=== PATIENT | female | born 1940 | race Caucasian/White ===

== ENCOUNTER 2022-10-13 16:33 | Inpatient (IN) ==
[2022-10-13] MEDS ORDERED: IOPAMIDOL 100 ML BOTTLE IV ONE (16:34)
[2022-10-13] MEDS ORDERED: IPRATROPIUM/ALBUTEROL 3 ML AMPUL.NEB NEB ONE (16:50)
[2022-10-13] MEDS ORDERED: methylPREDNISolone SOD SUCC 125 MG/2 ML VIAL IV ONE (16:50)
--- NOTE | 2022-10-13 16:56 | Emergency Department Note ---
SOB HPI General Chief Complaint: Shortness of Breath/Dyspnea Stated Complaint: SOB Time Seen by Provider: 10/13/22 16:43 Source: patient Mode of arrival: wheelchair Limitations: no limitations History of Present Illness HPI Narrative: Narrative: 82-year-old female presents the emergency department from minor care for shortness of breath. States that she does have some breathing problems she has inhalation problems she said she also has history of hypertension COPD emphysema and diabetes. They said that they did have some family over as it recently was her birthday and afterwards people called saying that they had cough and congestion worried that maybe she possibly got that. She is not on home oxygen at home does use Spiriva as well as an inhaler at home of the albuterol said she is been using it as prescribed she is only been using albuterol about 3-4 times per day over the last 2 days and the Spiriva once a day. They noticed that whenever she was getting up to move today she was becoming more short of breath. Denying any fevers or chills she does have a cough. Denying any other symptoms otherwise she says she feels weak and tired also does note that it rosenberg a little when she urinates since it has been some dark urine. It was noted that she had oxygen saturations down in the 74 is from ambulating and resting were 86 to 88% at [facility] care. Related Data Home Medications Medication Instructions Recorded Confirmed acetaminophen 500 mg tablet 500 mg PO QDAY PRN pain 07/15/15 09/23/22 Previous Rx's Medication Instructions Recorded cholecalciferol (vitamin D3) 50 2,000 unit PO QDAY Vit D def #90 04/27/18 mcg (2,000 unit) capsule caps lancets 28 gauge (Super Thin See Rx Instructions .Route 09/20/21 Lancets) .COMPLEX #100 ea lisinopril 40 mg tablet 40 mg PO QDAY blood pressure #90 10/29/21 tabs blood sugar diagnostic (Contour #100 ea 02/01/22 Test Strips) tiotropium 2.5 mcg-olodaterol 2.5 See Rx Instructions .Route 05/03/22 mcg/actuation mist for inhalation .COMPLEX #4 grams (Stiolto Respimat) alendronate 70 mg tablet 70 mg PO QWEEK #12 tabs 06/08/22 nystatin 100,000 unit/gram topical 1 applic topical QDAY #30 grams 07/07/22 powder metoprolol tartrate 50 mg tablet 50 mg PO BID #180 tabs 07/28/22 rosuvastatin 20 mg tablet 20 mg PO QDAY #90 tabs 07/28/22 albuterol sulfate 90 mcg/actuation 2 inh inhalation Q4H PRN shortness 09/22/22 aerosol inhaler (Ventolin HFA) of breath or wheezing #8.5 grams Allergies Allergy/AdvReac Type Severity Reaction Status Date / Time Sulfa (Sulfonamide AdvReac Intermediate made her Verified 10/13/22 16:32 Antibiotics) sick Chemical odors Allergy Unknown Cough Uncoded 10/13/22 16:32 Dust mites, cat dander Allergy Unknown Cough Uncoded 10/13/22 16:32 Grasses, trees Allergy Unknown Cough Uncoded 10/13/22 16:32 Review of Systems ROS ROS Narrative: Narrative: All systems ED: reviewed and negative except as stated. [facility] Narrative Patient History Narrative: Narrative: Medical/Surgical/Family History All Active Problems (Updated 10/13/22 @ 18:38 by Jordy Price DO) Hypertension, essential (Chronic) Hypercholesterolemia (Chronic) Pulmonary emphysema (Chronic) Osteoporosis (Chronic) Primary hyperparathyroidism (Chronic) Hearing Loss (Chronic) Cystocele with uterine prolapse (Chronic) Cholelithiasis and cholecystitis without obstruction (Acute) Lichen planus (Chronic) Thoracic back pain (Acute) Memory changes (Chronic) Medicare annual wellness visit, initial (Acute) Thyroid nodule (Chronic) Cystocele (Chronic) Intertrigo (Acute) Acute respiratory failure with hypoxemia (Acute) Pneumonia (Acute) Diabetes mellitus with neuropathy (Chronic) Medical History Cystocele Cystocele with uterine prolapse Diabetes mellitus with neuropathy Encounter for Health Maintenance Examination in Adult 10/26/17 Hearing Loss Hypercalcemia Hypercholesterolemia Hypertension, essential Intertrigo Medicare annual wellness visit, initial Memory changes 03/18: MMSE Osteoporosis Primary hyperparathyroidism Pulmonary emphysema Thoracic back pain Thyroid nodule Surgical History H/O tubal ligation 1972 H/O: hysterectomy 1987 History of hip replacement 03/11 History of laparoscopic cholecystectomy 12/15/2017 Family History Mother Malignant neoplasm of colon Father ETOH abuse Grandmother , Paternal Tuberculosis Brother ETOH abuse Pancreatic cancer Heart disease Sister Lung disease Social History Smoking Status: Former smoker Alcohol Intake Frequency: holiday/special occasion only Substance Use: does not use Exam Narrative Narrative: Narrative: Vital signs noted General: Awake. Alert. No distress. Skin: Warm. Dry. No rash. HEENT: NCAT. PERRL. EOMI. No conjunctivitis. No nystagmus. No pharyngitis. Membranes moist. Neck: No PTP. Good ROM. No meningeal signs. No stridor. No thyromegaly. No JVD. Cardiovascular: Mild tachycardia but regular rhythm. No murmur. No rubs. No gallops. Respiratory: Mild respiratory distress with audible wheezes but is wheezes heard mainly and expiratory mainly in the bases. Mild crackles heard as well bilaterally. And mildly diminished breath sounds throughout Gastrointestinal: Abdomen soft. No tenderness. No distention. Normal bowel sounds. No palpable organomegaly or masses. Back: No deformity. No CVAT. Musculoskeletal: No tenderness. No swelling. No erythema. No edema. Good peripheral pulses x 4 Lymphatic: No palpable adenopathy. Neurological: No focal neurological deficits observed. General Limitations: no limitations Course Vital Signs Vital signs: Vital Signs Temperature 99.0 F 10/13/22 16:34 Pulse Rate 102 H 10/13/22 16:34 Respiratory Rate 20 10/13/22 16:34 Blood Pressure 138/71 10/13/22 16:34 Pulse Oximetry (%) 88 L 10/13/22 16:34 Oxygen Delivery Method 10/13/22 16:34 Temperature 99.0 F 10/13/22 16:34 Pulse Rate 99 H 10/13/22 17:42 Respiratory Rate 20 10/13/22 16:34 Blood Pressure 155/81 10/13/22 17:42 Pulse Oximetry (%) 94 10/13/22 17:42 Oxygen Delivery Method 10/13/22 17:46 Oxygen Flow Rate (L/min) 2 10/13/22 17:46 [facility] MDM Narrative Medical decision making narrative: Narrative: Patient presents with shortness of breath. Does have history of COPD the worry here is this either COPD exacerbation versus a pneumonia. This could be virally induced. We will go ahead and get viral panels including a CBC and a chemistry, D-dimer to rule out pulmonary embolism as well as a chest x-ray. We will also get magnesium. Will also get blood cultures in case this is an early pneumonia we will hold off on antibiotics at this time she currently does not have a fever it is there is mild tachycardia. We will going give a DuoNeb as well as Solu- Medrol to help with these COPD. Disposition will be pending results. Patient is currently started on 2 L of oxygen to get her above 90% so she is oxygen requiring at this time. Patient's chest x-ray showed possible inflammation versus infection could be early pneumonia. CBC actually showed no white blood cell count. D-dimer was elevated to 2.02 so went ahead and ordered a CT angiogram which is still pending at this time to rule out pulmonary embolism. VBG actually looks fairly good as there is no acute findings lactate was negative at 1.0 sodium a little bit low at 132 creatinine 0.04 procalcitonin that was elevated to 0.25. This does make it possibly that this is a pneumonia so went ahead and started patient on azithromycin and Rocephin did get blood cultures. Did give patient Solu-Medrol as well as a DuoNeb to see if that does help with her breathing. Urine is still pending at this time. As well as a CT angiogram. Patient I think will need to be admitted because she is still hypoxic just walking her to the bathroom even on 2 L of oxygen she still dropped below 90% which is new for her she is normally is not requiring oxygen. Patient be signed out to the daytime physician pending CT angiogram as well as urinalysis and then speaking with hospitalist for possible admission. EKG interpretation: EKG done at 1734 interpreted by myself shows sinus rhythm rate of 98, parable 138, QRS 77, QTc 422. There is no acute ST changes no acute T wave changes no signs of ischemia. No signs of hypertrophy, heart strain, heart block. There is no WPW/Brugada/HOCM. Impression is normal sinus EKG with no ischemia Lab Data Result diagrams: 10/13/22 17:00 Labs: Lab Results 10/13/22 10/13/22 10/13/22 Range/Units 17:00 17:00 17:00 WBC 6.4 (4.5-11.0) K/mcL RBC 4.65 (3.59-5.38) M/mcL Hgb 13.9 (11.2-15.7) g/dL Hct 42.2 (34.1-44.9) % POC Hct (36-48) MCV 90.8 (80.0-100.0) fL MCH 29.9 (26.0-34.0) pg MCHC 32.9 (31.0-36.0) g/dL RDW 12.5 (11.5-14.5) % Plt Count 149 (140-440) K/mcL MPV 11.0 (8.8-12.5) fL Immature Gran % (Auto) 0.3 (0.0-0.5) % Neut % (Auto) 72.6 (38.0-78.0) % Lymph % (Auto) 9.5 L (15.5-49.0) % Ransom % (Auto) 16.6 H (1.0-12.0) % Eos % (Auto) 0.2 (0.0-7.0) % Baso % (Auto) 0.8 (0.0-2.0) % Lymph # (Auto) 0.61 L (1.50-4.80) K/mcL Ransom # (Auto) 1.06 H (0.10-0.90) K/mcL Eos # (Auto) 0.01 (0.00-0.70) K/mcL Baso # (Auto) 0.05 (0.00-0.30) K/mcL Immature Gran # 0.02 (0.00-0.05) K/mcl Absolute Neutrophils 4.65 (1.80-8.00) K/mcL D-Dimer 2.02 H (0.27-0.50) ug/mL POC VBG pH (7.32-7.42) POC VBG pCO2 at Temp (41-51) POC VBG pO2 (25-40) POC VBG HCO3 (24-28) POC VBG Total CO2 (25-29) POC Venous O2 Sat (40-70) POC VBG Base Excess (-2-2) VBG Lactic Acid (0.5-2) POC Sodium (133-145) POC Potassium (3.3-5.1) POC Chloride (96-108) POC Total CO2 (22-30) POC BUN (6-20) POC Creatinine (0.6-1.2) POC Glucose (70-105) POC WB Ioniz Calcium (1.16-1.32) Magnesium 2.1 (1.6-2.5) mg/dL Procalcitonin (<0.10) ng/mL 10/13/22 10/13/22 10/13/22 Range/Units 17:00 17:04 17:08 WBC (4.5-11.0) K/mcL RBC (3.59-5.38) M/mcL Hgb (11.2-15.7) g/dL Hct (34.1-44.9) % POC Hct 44.0 (36-48) MCV (80.0-100.0) fL MCH (26.0-34.0) pg MCHC (31.0-36.0) g/dL RDW (11.5-14.5) % Plt Count (140-440) K/mcL MPV (8.8-12.5) fL Immature Gran % (Auto) (0.0-0.5) % Neut % (Auto) (38.0-78.0) % Lymph % (Auto) (15.5-49.0) % Ransom % (Auto) (1.0-12.0) % Eos % (Auto) (0.0-7.0) % Baso % (Auto) (0.0-2.0) % Lymph # (Auto) (1.50-4.80) K/mcL Ransom # (Auto) (0.10-0.90) K/mcL Eos # (Auto) (0.00-0.70) K/mcL Baso # (Auto) (0.00-0.30) K/mcL Immature Gran # (0.00-0.05) K/mcl Absolute Neutrophils (1.80-8.00) K/mcL D-Dimer (0.27-0.50) ug/mL POC VBG pH 7.39 (7.32-7.42) POC VBG pCO2 at Temp 45.6 (41-51) POC VBG pO2 43 H (25-40) POC VBG HCO3 27.6 (24-28) POC VBG Total CO2 29.0 (25-29) POC Venous O2 Sat 78.0 H (40-70) POC VBG Base Excess 3.0 H (-2-2) VBG Lactic Acid 1.0 (0.5-2) POC Sodium 132 L (133-145) POC Potassium 4.3 (3.3-5.1) POC Chloride 98 (96-108) POC Total CO2 27.0 (22-30) POC BUN 18 (6-20) POC Creatinine 0.4 L (0.6-1.2) POC Glucose 204 H (70-105) POC WB Ioniz Calcium 1.32 (1.16-1.32) Magnesium (1.6-2.5) mg/dL Procalcitonin 0.25 H (<0.10) ng/mL ED POC Tests ED POC Tests: NAILA - Influenza A Negative NAILA - Influenza B Negative NAILA - SARS Antigen Negative Discharge Plan Patient/Caregiver Discharge Instructions Pt seen by SECRETARIAL TEACHER/PA only: No Clinical Impression: Acute respiratory failure with hypoxemia, Pneumonia Patient Disposition: Still a Patient Condition: Fair Follow up with: Livan Mendiola MD [Primary Care Provider] - Prescriptions: No Action cholecalciferol (vitamin D3) 2,000 unit capsule 2,000 unit PO QDAY Qty: 90 3RF lancets [Super Thin Lancets] 28 gauge misc See Rx Instructions .ROUTE .COMPLEX Qty: 100 6RF Dose Instruction: USE TO TEST BLOOD SUGAR EVERY DAY DIRECTED Rx Instructions: USE TO TEST BLOOD SUGAR EVERY DAY DIRECTED lisinopril 40 mg tablet 40 mg PO QDAY Qty: 90 4RF Rx Instructions: Dose change (DME) Contour Test Strips Strip See Dose Instructions .ROUTE .MEDSUPPLY Qty: 100 5RF Dose Instruction: As directed Rx Instructions: As directed, test once daily Stiolto Respimat 2.5-2.5 mcg/actuation mist See Rx Instructions .ROUTE .COMPLEX Qty: 4 3RF Dose Instruction: INHALE 2 PUFFS BY MOUTH EVERY 24 HOURS Rx Instructions: INHALE 2 PUFFS BY MOUTH EVERY 24 HOURS alendronate 70 mg tablet 70 mg PO QWEEK Qty: 12 1RF metoprolol tartrate 50 mg tablet 50 mg PO BID Qty: 180 1RF rosuvastatin 20 mg tablet 20 mg PO QDAY Qty: 90 1RF albuterol sulfate [Ventolin HFA] 90 mcg/actuation HFA aerosol inhaler 2 inh inhalation Q4H PRN (Reason: shortness of breath or wheezing) Qty: 8.5 1RF acetaminophen 500 mg tablet 500 mg PO QDAY PRN (Reason: pain) nystatin 100,000 unit/gram powder 1 applic topical QDAY Qty: 30 0RF Rx Instructions: Apply to area of tenderness, groin
[2022-10-13 17:13] LABS: POC Calcium, Ionized 1.32 (1.16-1.32); POC Creatinine 0.4 (0.6-1.2); POC Potassium 4.3 (3.3-5.1)
--- NOTE | 2022-10-13 17:35 | XRay Report ---
CLINICAL INFORMATION: Dyspnea COMPARISON: 04/11/2019 TECHNIQUE: Portable FINDINGS: The heart size, mediastinum and pulmonary vessels are unremarkable. Moderate mixed interstitial/alveolar airspace disease is seen throughout both lungs which is superimposed upon minor interstitial fibrosis. There are no effusions. The bones and soft tissues are within normal limits. IMPRESSION: Moderate interstitial/alveolar and airspace disease diffusely throughout both lungs. Consider infection or inflammatory processes. Interpreted and Authenticated by: Robert Kendrick 10/13/22
[2022-10-13 18:02] LABS: Basophils # (Auto) 0.05 K/mcL (0.00-0.30); Basophils % (Auto) 0.8 % (0.0-2.0); Eosinophils # (Auto) 0.01 K/mcL (0.00-0.70); Eosinophils % (Auto) 0.2 % (0.0-7.0); Hematocrit 42.2 % (34.1-44.9); Hemoglobin 13.9 g/dL (11.2-15.7); Lymphocytes # (Auto) 0.61 K/mcL (1.50-4.80); Lymphocytes % (Auto) 9.5 % (15.5-49.0); Mean Cell Volume 90.8 fL (80.0-100.0); Mean Corpuscular HGB Conc 32.9 g/dL (31.0-36.0); Monocytes # (Auto) 1.06 K/mcL (0.10-0.90); Monocytes % (Auto) 16.6 % (1.0-12.0); Neutrophils % (Auto) 72.6 % (38.0-78.0); Platelet Count 149 K/mcL (140-440); RBC 4.65 M/mcL (3.59-5.38); Red Cell Distribution Width 12.5 % (11.5-14.5); WBC 6.4 K/mcL (4.5-11.0)
--- NOTE | 2022-10-13 18:19 | EKG ---
[facility] Test Date: 2022-10-13 Pat Name: Hailey Gavin Department: ED Room: Gender: Female Day Care Supervisor: CS : [id number] Requested By: Jordy Price Order Number: [id number] Reading MD: Bandar Weber Measurements Intervals Gile Rate: 98 P: 6 MS: 138 QRS: 64 QRSD: 77 T: 73 QT: 330 QTc: 422 Interpretive Statements Sinus rhythm Borderline repolarization abnormality Electronically Signed On 10-13-2022 18:19:18 PST by Bandar Weber /store/[email or web address]/[id number]
[2022-10-13] MEDS ORDERED: cefTRIAXone 1 GM VIAL IV ONE (18:24)
[2022-10-13] MEDS ORDERED: AZITHROMYCIN 500 MG in DEXTROSE 5% IN WATER 250 ML IV ONE (18:24)
--- NOTE | 2022-10-13 21:07 | Emergency Department Note ---
Course Course Course Narrative: I assumed care of patient at 1900 pending CTA results and hospitalist review of case. Please refer to Dr. Price's note for care up to this point. CT of the chest was obtained and was negative for PE but did suggest infectious pulmonary process. Case was discussed with hospitalist who has agreed to admit the patient for respiratory failure secondary to pneumonia. Dr. Price is already treated patient with additional mycin and Rocephin. Plan of care was discussed with patient and she expressed verbal understanding and agreement. Vital Signs Vital signs: Vital Signs Temperature 99.0 F 10/13/22 16:34 Pulse Rate 102 H 10/13/22 16:34 Respiratory Rate 20 10/13/22 16:34 Blood Pressure 138/71 10/13/22 16:34 Pulse Oximetry (%) 88 L 10/13/22 16:34 Oxygen Delivery Method 10/13/22 16:34 Temperature 99.0 F 10/13/22 16:34 Pulse Rate 94 H 10/13/22 20:44 Respiratory Rate 32 H 10/13/22 20:44 Blood Pressure 145/80 10/13/22 19:31 Pulse Oximetry (%) 95 10/13/22 20:44 Oxygen Delivery Method 10/13/22 20:44 Oxygen Flow Rate (L/min) 2 10/13/22 20:44 MDM MDM Narrative Medical decision making narrative: Narrative: Differential Diagnosis Differential Diagnosis: Pneumonia, respiratory failure Medical Records Medical records reviewed: Yes I reviewed the patient's medical records. Lab Data Result diagrams: 10/13/22 17:00 Labs: Lab Results 10/13/22 10/13/22 10/13/22 Range/Units 17:00 17:00 17:00 WBC 6.4 (4.5-11.0) K/mcL RBC 4.65 (3.59-5.38) M/mcL Hgb 13.9 (11.2-15.7) g/dL Hct 42.2 (34.1-44.9) % POC Hct (36-48) MCV 90.8 (80.0-100.0) fL MCH 29.9 (26.0-34.0) pg MCHC 32.9 (31.0-36.0) g/dL RDW 12.5 (11.5-14.5) % Plt Count 149 (140-440) K/mcL MPV 11.0 (8.8-12.5) fL Immature Gran % (Auto) 0.3 (0.0-0.5) % Neut % (Auto) 72.6 (38.0-78.0) % Lymph % (Auto) 9.5 L (15.5-49.0) % Dewitt % (Auto) 16.6 H (1.0-12.0) % Eos % (Auto) 0.2 (0.0-7.0) % Baso % (Auto) 0.8 (0.0-2.0) % Lymph # (Auto) 0.61 L (1.50-4.80) K/mcL Dewitt # (Auto) 1.06 H (0.10-0.90) K/mcL Eos # (Auto) 0.01 (0.00-0.70) K/mcL Baso # (Auto) 0.05 (0.00-0.30) K/mcL Immature Gran # 0.02 (0.00-0.05) K/mcl Absolute Neutrophils 4.65 (1.80-8.00) K/mcL D-Dimer 2.02 H (0.27-0.50) ug/mL POC VBG pH (7.32-7.42) POC VBG pCO2 at Temp (41-51) POC VBG pO2 (25-40) POC VBG HCO3 (24-28) POC VBG Total CO2 (25-29) POC Venous O2 Sat (40-70) POC VBG Base Excess (-2-2) VBG Lactic Acid (0.5-2) POC Sodium (133-145) POC Potassium (3.3-5.1) POC Chloride (96-108) POC Total CO2 (22-30) POC BUN (6-20) POC Creatinine (0.6-1.2) POC Glucose (70-105) POC WB Ioniz Calcium (1.16-1.32) Magnesium 2.1 (1.6-2.5) mg/dL Procalcitonin (<0.10) ng/mL 10/13/22 10/13/22 10/13/22 Range/Units 17:00 17:04 17:08 WBC (4.5-11.0) K/mcL RBC (3.59-5.38) M/mcL Hgb (11.2-15.7) g/dL Hct (34.1-44.9) % POC Hct 44.0 (36-48) MCV (80.0-100.0) fL MCH (26.0-34.0) pg MCHC (31.0-36.0) g/dL RDW (11.5-14.5) % Plt Count (140-440) K/mcL MPV (8.8-12.5) fL Immature Gran % (Auto) (0.0-0.5) % Neut % (Auto) (38.0-78.0) % Lymph % (Auto) (15.5-49.0) % Dewitt % (Auto) (1.0-12.0) % Eos % (Auto) (0.0-7.0) % Baso % (Auto) (0.0-2.0) % Lymph # (Auto) (1.50-4.80) K/mcL Dewitt # (Auto) (0.10-0.90) K/mcL Eos # (Auto) (0.00-0.70) K/mcL Baso # (Auto) (0.00-0.30) K/mcL Immature Gran # (0.00-0.05) K/mcl Absolute Neutrophils (1.80-8.00) K/mcL D-Dimer (0.27-0.50) ug/mL POC VBG pH 7.39 (7.32-7.42) POC VBG pCO2 at Temp 45.6 (41-51) POC VBG pO2 43 H (25-40) POC VBG HCO3 27.6 (24-28) POC VBG Total CO2 29.0 (25-29) POC Venous O2 Sat 78.0 H (40-70) POC VBG Base Excess 3.0 H (-2-2) VBG Lactic Acid 1.0 (0.5-2) POC Sodium 132 L (133-145) POC Potassium 4.3 (3.3-5.1) POC Chloride 98 (96-108) POC Total CO2 27.0 (22-30) POC BUN 18 (6-20) POC Creatinine 0.4 L (0.6-1.2) POC Glucose 204 H (70-105) POC WB Ioniz Calcium 1.32 (1.16-1.32) Magnesium (1.6-2.5) mg/dL Procalcitonin 0.25 H (<0.10) ng/mL ED POC Tests ED POC Tests: NAILA - Influenza A Negative NAILA - Influenza B Negative NAILA - SARS Antigen Negative Radiology Data Radiology results reviewed: Yes I reviewed the patient's radiology results. Radiology results narrative: Chest x-ray obtained, agree with radiologist interpretation CT of the chest obtained with image reviewed myself with no acute PE Core Measures AMI Core Measures Followed: Yes Discharge Plan Patient/Caregiver Discharge Instructions Pt seen by BOOSTER STATION OPERATOR/PA only: No Clinical Impression: Acute respiratory failure with hypoxemia, Pneumonia Patient Disposition: Xfer As Outpt/Obs ([facility]) Condition: Fair Follow up with: Livan Mendiola MD [Primary Care Provider] - Prescriptions: No Action cholecalciferol (vitamin D3) 2,000 unit capsule 2,000 unit PO QDAY Qty: 90 3RF lancets [Super Thin Lancets] 28 gauge misc See Rx Instructions .ROUTE .COMPLEX Qty: 100 6RF Dose Instruction: USE TO TEST BLOOD SUGAR EVERY DAY DIRECTED Rx Instructions: USE TO TEST BLOOD SUGAR EVERY DAY DIRECTED lisinopril 40 mg tablet 40 mg PO QDAY Qty: 90 4RF Rx Instructions: Dose change (DME) Contour Test Strips Strip See Dose Instructions .ROUTE .MEDSUPPLY Qty: 100 5RF Dose Instruction: As directed Rx Instructions: As directed, test once daily Stiolto Respimat 2.5-2.5 mcg/actuation mist See Rx Instructions .ROUTE .COMPLEX Qty: 4 3RF Dose Instruction: INHALE 2 PUFFS BY MOUTH EVERY 24 HOURS Rx Instructions: INHALE 2 PUFFS BY MOUTH EVERY 24 HOURS alendronate 70 mg tablet 70 mg PO QWEEK Qty: 12 1RF metoprolol tartrate 50 mg tablet 50 mg PO BID Qty: 180 1RF rosuvastatin 20 mg tablet 20 mg PO QDAY Qty: 90 1RF albuterol sulfate [Ventolin HFA] 90 mcg/actuation HFA aerosol inhaler 2 inh inhalation Q4H PRN (Reason: shortness of breath or wheezing) Qty: 8.5 1RF acetaminophen 500 mg tablet 500 mg PO QDAY PRN (Reason: pain) nystatin 100,000 unit/gram powder 1 applic topical QDAY Qty: 30 0RF Rx Instructions: Apply to area of tenderness, groin
[2022-10-13 21:13] LABS: Appearance,Urine CLEAR (Clear); Bilirubin,Urine NEGATIVE (Negative); Color,Urine YELLOW; Culture Indicated,Urine No; Glucose,Urine (UA) NEGATIVE (Negative); Ketones,Urine 15 mg/dL (Negative); Leukocyte Esterase,Urine NEGATIVE /uL (Negative); Mucus,Urine FEW /hpf; Nitrate,Urine NEGATIVE (Negative); Protein,Urine 30 mg/dL (Negative); Specific Gravity,Urine 1.015 (1.000-1.035); Urine Blood MODERATE ery/mcL (Negative); Urine RBC 13 /hpf (0-3); Urine Squamous Epithelial Cell < 1 /hpf (0-4); Urine WBC 3 /hpf (0-4)
--- NOTE | 2022-10-13 22:15 | Internal Med History&Physical ---
HPI History of Present Illness Patient information: Note initiated : 10/13/22 at 10:09 pm Service Date, if different from initiated Date: [] Patient: Hailey Gavin 82 y/o F admitted on for Shortness of breath. Chief Complaint: [] History of present illness: Ms. Gavin is a 82-year-old female with a history of hypertension, hyperlipidemia, COPD, diabetes mellitus, osteoporosis who presented to the emergency department for shortness of breath that has been progressively worsening for about 4 days. Patient also has had a productive cough initially of yellowish sputum that later became more brownish in color. Patient has had some chills and fatigue but no fevers. In the emergency department, the patient had a new oxygen requirement of 2 L/min, a temperature of 99.0, respiratory rate in the 30s, heart rate in the 90s. The patient's white blood cell count was normal, sodium mildly decreased at 132, glucose level 204 with an otherwise unremarkable chemistry panel. Chest x-ray showed moderate interstitial alveolar and airspace disease diffusely throughout both lungs. The patient had an elevated D-dimer, CTA was performed and results pending when hospital medicine was consulted. The ED provider did say that the CTA preliminary report was negative for pulmonary embolism. Oanh COVID and influenza combo was negative. Review of systems Constitutional: Positive for chills and fatigue, no fevers Eyes: no vision changes or pain Cardiovascular: no chest pain, no palpitations Respiratory: Positive for shortness of breath, productive cough Gastrointestinal: no abdominal pain, no nausea, vomiting, or diarrhea Genitourinary: no dysuria or difficulty voiding Musculoskeletal: no arthralgia or myalgia Integumentary: no skin lesion or wound Neurological: no focal weakness or numbness Psychiatric: no anxiety or depression Physical exam Head: Atraumatic, normal inspection. Eyes: normal appearance, no scleral icterus. Neck: full ROM Respiratory: 2 L/min oxygen supplementation, diffuse of bilateral wheezes Cardiovascular: normal rate and rhythm, S1, S2. GI/Abdominal: soft, nontender, no guarding. Extremities: full range of motion, nontender. Neurological: CN II-XII intact, intact motor, intact sensation. Psychiatric: Appears mildly anxious. Skin: warm, normal color PFSH PFSH All Active Problems (Updated 10/13/22 @ 18:38 by Jordy Price DO) Hypertension, essential (Chronic) Hypercholesterolemia (Chronic) Pulmonary emphysema (Chronic) Osteoporosis (Chronic) Primary hyperparathyroidism (Chronic) Hearing Loss (Chronic) Cystocele with uterine prolapse (Chronic) Cholelithiasis and cholecystitis without obstruction (Acute) Lichen planus (Chronic) Thoracic back pain (Acute) Memory changes (Chronic) Medicare annual wellness visit, initial (Acute) Thyroid nodule (Chronic) Cystocele (Chronic) Intertrigo (Acute) Acute respiratory failure with hypoxemia (Acute) Pneumonia (Acute) Diabetes mellitus with neuropathy (Chronic) Medical History Cystocele Cystocele with uterine prolapse Diabetes mellitus with neuropathy Encounter for Health Maintenance Examination in Adult 10/26/17 Hearing Loss Hypercalcemia Hypercholesterolemia Hypertension, essential Intertrigo Medicare annual wellness visit, initial Memory changes 03/18: MMSE Osteoporosis Primary hyperparathyroidism Pulmonary emphysema Thoracic back pain Thyroid nodule Surgical History H/O tubal ligation 1972 H/O: hysterectomy 1987 History of hip replacement 03/11 History of laparoscopic cholecystectomy 12/15/2017 Family History Mother Malignant neoplasm of colon Father ETOH abuse Grandmother , Paternal Tuberculosis Brother ETOH abuse Pancreatic cancer Heart disease Sister Lung disease Social History marital status: other: Children-4 smoking status: Former smoker quit date: 07/14/15 pack-years: 55 alcohol intake frequency: holiday/special occasion only substance use type: does not use MEDS/ALLERGIES Home Medications and Allergies Home Medications Medication Instructions Recorded Confirmed Type acetaminophen 500 mg tablet 500 mg PO QDAY PRN pain 07/15/15 09/23/22 History cholecalciferol (vitamin D3) 50 2,000 unit PO QDAY Vit D def #90 04/27/18 Rx mcg (2,000 unit) capsule caps lancets 28 gauge (Super Thin See Rx Instructions .Route 09/20/21 09/23/22 Rx Lancets) .COMPLEX #100 ea lisinopril 40 mg tablet 40 mg PO QDAY blood pressure #90 10/29/21 09/23/22 Rx tabs blood sugar diagnostic (Contour #100 ea 02/01/22 09/23/22 Rx Test Strips) tiotropium 2.5 mcg-olodaterol 2.5 See Rx Instructions .Route 05/03/22 09/23/22 Rx mcg/actuation mist for inhalation .COMPLEX #4 grams (Stiolto Respimat) alendronate 70 mg tablet 70 mg PO QWEEK #12 tabs 06/08/22 09/23/22 Rx nystatin 100,000 unit/gram topical 1 applic topical QDAY #30 grams 07/07/22 09/23/22 Rx powder metoprolol tartrate 50 mg tablet 50 mg PO BID #180 tabs 07/28/22 09/23/22 Rx rosuvastatin 20 mg tablet 20 mg PO QDAY #90 tabs 07/28/22 09/23/22 Rx albuterol sulfate 90 mcg/actuation 2 inh inhalation Q4H PRN shortness 09/22/22 09/23/22 Rx aerosol inhaler (Ventolin HFA) of breath or wheezing #8.5 grams Allergies Allergy/AdvReac Type Severity Reaction Status Date / Time Sulfa (Sulfonamide AdvReac Intermediate made her Verified 10/13/22 16:32 Antibiotics) sick Chemical odors Allergy Unknown Cough Uncoded 10/13/22 16:32 Dust mites, cat dander Allergy Unknown Cough Uncoded 10/13/22 16:32 Grasses, trees Allergy Unknown Cough Uncoded 10/13/22 16:32 EXAM Constitutional Vitals: Temp Pulse Resp BP Pulse Ox O2 Del Method O2 Flow Rate 99.0 F 94 H 32 H 145/80 95 2 10/13/22 16:34 10/13/22 20:44 10/13/22 20:44 10/13/22 19:31 10/13/22 20:44 10/13/22 20:44 10/13/22 20:44 DATA Data Completed and Pending Labs: Labs from last 24 hours 10/13/22 10/13/22 10/13/22 20:30 17:08 17:04 WBC RBC Hgb Hct POC Hct 44.0 MCV MCH MCHC RDW Plt Count MPV Immature Gran % (Auto) Neut % (Auto) Lymph % (Auto) [place] % (Auto) Eos % (Auto) Baso % (Auto) Lymph # (Auto) [place] # (Auto) Eos # (Auto) Baso # (Auto) Immature Gran # Absolute Neutrophils D-Dimer POC VBG pH 7.39 POC VBG pCO2 at Temp 45.6 POC VBG pO2 43 H POC VBG HCO3 27.6 POC VBG Total CO2 29.0 POC Venous O2 Sat 78.0 H POC VBG Base Excess 3.0 H VBG Lactic Acid 1.0 POC Sodium 132 L POC Potassium 4.3 POC Chloride 98 POC Total CO2 27.0 POC BUN 18 POC Creatinine 0.4 L POC Glucose 204 H POC WB Ioniz Calcium 1.32 Magnesium Procalcitonin Urine Color Yellow Urine Appearance Clear Urine pH 6.0 Ur Specific [place] 1.015 Urine Protein 30 A Urine Glucose (UA) Negative Urine Ketones 15 A Urine Occult Blood Moderate A Urine Nitrate Negative Urine Bilirubin Negative Urine Urobilinogen 4.0 A Ur Leukocyte Esterase Negative Urine RBC 13 H Urine WBC 3 Ur Squamous Epith Cells < 1 Urine Bacteria None Urine Mucus Few A Ur Culture Indicated? No 10/13/22 10/13/22 10/13/22 17:00 17:00 17:00 WBC RBC Hgb Hct POC Hct MCV MCH MCHC RDW Plt Count MPV Immature Gran % (Auto) Neut % (Auto) Lymph % (Auto) [place] % (Auto) Eos % (Auto) Baso % (Auto) Lymph # (Auto) [place] # (Auto) Eos # (Auto) Baso # (Auto) Immature Gran # Absolute Neutrophils D-Dimer 2.02 H POC VBG pH POC VBG pCO2 at Temp POC VBG pO2 POC VBG HCO3 POC VBG Total CO2 POC Venous O2 Sat POC VBG Base Excess VBG Lactic Acid POC Sodium POC Potassium POC Chloride POC Total CO2 POC BUN POC Creatinine POC Glucose POC WB Ioniz Calcium Magnesium 2.1 Procalcitonin 0.25 H Urine Color Urine Appearance Urine pH Ur Specific [place] Urine Protein Urine Glucose (UA) Urine Ketones Urine Occult Blood Urine Nitrate Urine Bilirubin Urine Urobilinogen Ur Leukocyte Esterase Urine RBC Urine WBC Ur Squamous Epith Cells Urine Bacteria Urine Mucus Ur Culture Indicated? 10/13/22 17:00 WBC 6.4 RBC 4.65 Hgb 13.9 Hct 42.2 POC Hct MCV 90.8 MCH 29.9 MCHC 32.9 RDW 12.5 Plt Count 149 MPV 11.0 Immature Gran % (Auto) 0.3 Neut % (Auto) 72.6 Lymph % (Auto) 9.5 L [place] % (Auto) 16.6 H Eos % (Auto) 0.2 Baso % (Auto) 0.8 Lymph # (Auto) 0.61 L [place] # (Auto) 1.06 H Eos # (Auto) 0.01 Baso # (Auto) 0.05 Immature Gran # 0.02 Absolute Neutrophils 4.65 D-Dimer POC VBG pH POC VBG pCO2 at Temp POC VBG pO2 POC VBG HCO3 POC VBG Total CO2 POC Venous O2 Sat POC VBG Base Excess VBG Lactic Acid POC Sodium POC Potassium POC Chloride POC Total CO2 POC BUN POC Creatinine POC Glucose POC WB Ioniz Calcium Magnesium Procalcitonin Urine Color Urine Appearance Urine pH Ur Specific [place] Urine Protein Urine Glucose (UA) Urine Ketones Urine Occult Blood Urine Nitrate Urine Bilirubin Urine Urobilinogen Ur Leukocyte Esterase Urine RBC Urine WBC Ur Squamous Epith Cells Urine Bacteria Urine Mucus Ur Culture Indicated? A/P Narrative A/P Narrative: Assessment: 82-year-old female with a history of hypertension, hyperlipidemia, COPD, diabetes mellitus, osteoporosis admitted for acute hypoxic respiratory failure and a COPD exacerbation secondary to pneumonia. #Acute hypoxic respiratory failure #Community acquired pneumonia #Severe COPD exacerbation #Generalized weakness #Essential hypertension #Hyperlipidemia #Osteoporosis Plan -Ceftriaxone and azithromycin IV. -Oxygen supplementation as needed. -Solu-Medrol IV twice daily. -Scheduled DuoNebs and as needed albuterol nebs. -Sputum gram stain and culture. -MRSA nasal PCR. -Respiratory virus panel. -[place] PCR. -Follow blood cultures. -Follow CTA chest report. -Humalog SSImedium dose. -Home medication reconciliation. -Consistent carbohydrate diet. -PT and OT consult. -DVT prophylaxis: Lovenox Time Spent With Patient Time: Total time spent is greater than 50% in coordination of care (as documented) at patient's floor/unit and/or counseling patient:
[2022-10-14] MEDS ORDERED: DEXTROSE 31 GM ORAL.SUSP PO PRN (01:35)
[2022-10-14] MEDS ORDERED: DEXTROSE 50% 50 ML VIAL IV PRN (01:35)
[2022-10-14] MEDS ORDERED: LACTULOSE 20 GM/30 ML ORAL.SOL PO PRN (01:35)
[2022-10-14] MEDS ORDERED: ACETAMINOPHEN 325 MG TABLET PO PRN (01:35)
[2022-10-14] MEDS ORDERED: ALBUTEROL SULFATE 2.5 MG/3 ML NEBULIZER NEB PRN (01:35)
[2022-10-14] MEDS ORDERED: ONDANSETRON 4 MG/2 ML VIAL IV PRN (01:35)
--- NOTE | 2022-10-14 02:43 | Cat Scan Report ---
CLINICAL INFORMATION: Elevated d-dimer and hypoxia COMPARISON: None. TECHNIQUE: 80ml of Isovue-370 were injected intravenously. Using SmartPrep to maximize pulmonary artery opacification, .625mm helical slices were obtained from the lung apices through the lung bases. Following reconstruction, 2.5 mm sagittal, coronal, and axial reformations were processed. The exam was reviewed at mediastinal, lung, and bone windows. The exam was performed using radiation dose optimization techniques including, but not limited to, automated exposure control, adjustment of the mA and/or kV according to patient size and use of iterative reconstruction technique. FINDINGS: Pulmonary parenchymal windows show moderate centrilobular emphysema featuring chronic bronchitis with elevated lung volumes wall thickening/dilatation of bronchi. There are also multiple bullae-predominantly within the upper lobes. Small patchy, predominantly tree-in-bud, infiltrates, are scattered throughout the periphery of both upper, lower and right middle lobes. This is most prominent in the posterior segment of the right upper lobe where it is moderate in size. Consider infection or aspiration... Pleural spaces are unremarkable-no effusions. Mediastinal windows show the heart is grossly normal in size and configuration. Small loculated pericardial effusion is seen anteriorly. The central pulmonary arteries are enlarged right pulmonary 3 cm and the left pulmonary artery is also a 3 cm this suggests pulmonary hypertension. There are no emboli. The thoracic aorta is also normal diameter and well-opacified. Few mildly enlarged lymph nodes noted in the lower mediastinum ranging up to 11 mm in the azygos region. This should represent benign reactive adenopathy. Esophagus is grossly normal. The thyroid is unremarkable. Bone windows show mild T6 compression fracture of uncertain chronicity. No other osseous abnormalities. Soft tissues of the chest wall are normal. Images should the upper abdomen show bilateral adrenal masses: 3.4 cm on the left and 3.2 cm on the right. These almost certainly represent benign adenomas. IMPRESSION: 1. No evidence of pulmonary embolus. 2. Moderate centrilobular emphysema. Central pulmonary artery enlargement is compatible with pulmonary hypertension related to emphysema. 3. Moderate patchy infiltrate in the posterior segment of the right upper lobe Small patchy tree-in-bud infiltrates are scattered throughout the remaining right upper, left upper lobe, both lower lobes and right middle lobe. Consider infection or aspiration. 4. Small loculated pericardial effusion anteriorly. 5. Bilateral adrenal adenomas Interpreted and Authenticated by: Robert Kendrick 10/14/22
[2022-10-14] MEDS: methylPREDNISolone SOD SUCC 125 MG/2 ML VIAL IV SCH ×3 (02:55→20:42)
[2022-10-14] MEDS: IPRATROPIUM/ALBUTEROL 3 ML AMPUL.NEB NEB SCH ×7 (02:59→22:41)
[2022-10-14] MEDS ORDERED: IPRATROPIUM/ALBUTEROL 3 ML AMPUL.NEB NEB ONE (03:11)
[2022-10-14] MEDS: 0.9 % SODIUM CHLORIDE 10 ML SYRINGE IV SCH ×3 (05:57→20:50)
[2022-10-14 06:58] LABS: Hematocrit 42.4 % (34.1-44.9); Hemoglobin 13.6 g/dL (11.2-15.7); Mean Cell Volume 91.8 fL (80.0-100.0); Mean Corpuscular HGB Conc 32.1 g/dL (31.0-36.0); Mean Platelet Volume 10.4 fL (8.8-12.5); Platelet Count 154 K/mcL (140-440); RBC 4.62 M/mcL (3.59-5.38); Red Cell Distribution Width 12.5 % (11.5-14.5); WBC 5.7 K/mcL (4.5-11.0)
[2022-10-14 07:17] LABS: ALT/SGPT 107 U/L (<40); AST/SGOT 75 U/L (<32); Albumin 3.3 gm/dL (3.2-5.2); Albumin/Globulin Ratio 1.1 (1.0-2.3); Alkaline Phosphatase 79 U/L (39-117); Bilirubin,Direct 0.3 mg/dL (<0.3); Bilirubin,Total 0.7 mg/dL (0.1-1.0); Blood Urea Nitrogen 14 mg/dL (8-23); Carbon Dioxide 27 mmol/L (22-30); Chloride 96 mmol/L (96-108); Globulin 3.1 gm/dL (2.2-3.7); Glomerular Filtration Rate 85; Glucose 241 mg/dL (70-105); Lactate Dehydrogenase 185 U/L (135-225); Phosphorous 2.3 mg/dL (2.5-4.5); Triglycerides 72 mg/dL (<150); Uric Acid 3.7 mg/dL (2.5-8.0)
[2022-10-14 08:31] LABS: Band Neutrophils % 16 % (0-10); Lymphocytes % 5 % (15-49); Monocytes % (Manual) 8 % (1-12); Platelet Estimate NORMAL (Normal); RBC Morphology NORMAL (Normal); Segmented Neutrophils % 71 % (38-78)
[2022-10-14] MEDS: INSULIN LISPRO 1 UNIT/0.01 ML UNIT SQ SCH ×4 (08:52→20:43)
[2022-10-14] MEDS: ENOXAPARIN 40 MG/0.4 ML SYRINGE SQ SCH (08:53)
[2022-10-14] MEDS ORDERED: cefTRIAXone 1 GM VIAL IV SCH (09:00)
[2022-10-14] MEDS ORDERED: AZITHROMYCIN 500 MG in DEXTROSE 5% IN WATER 250 ML IV SCH (10:00)
[2022-10-14] MEDS: DOCUSATE SODIUM 100 MG CAPSULE PO SCH ×2 (11:03→20:43)
--- NOTE | 2022-10-14 17:20 | Internal Med Progress Note ---
SUBJECTIVE Subjective Patient information: Note initiated : 10/14/22 at 5:15 pm Service Date, if different from initiated Date: [] Patient: Hailey Gavin 82 y/o F admitted on 10/14/22 for Shortness of breath. Chief Complaint: [] Interval history: Ms. Gavin is a 82-year-old female with a history of hypertension, hyperlipidemia, COPD, diabetes mellitus, osteoporosis who presented to the emergency department for shortness of breath that has been progressively worsening for about 4 days. Patient also has had a productive cough initially of yellowish sputum that later became more brownish in color. Patient has had some chills and fatigue but no fevers. In the emergency department, the patient had a new oxygen requirement of 2 L/min, a temperature of 99.0, respiratory rate in the 30s, heart rate in the 90s. The patient's white blood cell count was normal, sodium mildly decreased at 132, glucose level 204 with an otherwise unremarkable chemistry panel. Chest x-ray showed moderate interstitial alveolar and airspace disease diffusely throughout both lungs. The patient had an elevated D-dimer, CTA was performed and results pending when hospital medicine was consulted. The ED provider did say that the CTA preliminary report was ne gative for pulmonary embolism. Oanh COVID and influenza combo was negative. 10/14 Patient respiratory rate was in the 30s overnight, heart rate in the 90s to low 100s, blood pressure normal to mildly elevated, continues on nasal oxygen supplementation, 3 L/min. Respiratory virus panel negative, SARS-CoV-2 PCR negative. MRSA nasal PCR negative. Sputum gram stain and culture was contaminated. The patient is moderately confused, redirectable with staff and family at bedside. Fischer catheter placed for urinary retention overnight. The patient is difficult to straight cath. According to family members, the patient has had problems with urinary retention in the past. CTA chest was negative for PE, positive for moderate patchy infiltrate in the posterior segment of the right lower lobe and small patchy tree-in-bud infiltrates scattered throughout the remaining right upper lobe, left upper lobe, both lower lobes and right middle lobe. Radiology felt this was consistent with infection or aspiration. Continuing ceftriaxone and azithromycin. Continuing Solu-Medrol IV, scheduled duo nebs and as needed albuterol nebs. Physical exam Head: Atraumatic, normal inspection. Eyes: normal appearance, no scleral icterus. Neck: full ROM Respiratory: 3 L/min oxygen supplementation, prolonged expirations, diffuse of bilateral wheezes Cardiovascular: normal rate and rhythm, S1, S2. GI/Abdominal: soft, nontender, no guarding. Extremities: full range of motion, nontender. Neurological: CN II-XII intact, intact motor, intact sensation. Psychiatric: Impaired cognition Skin: warm, normal color Constitutional Vitals: Vital Signs Temp Pulse Resp BP Pulse Ox O2 Del Method O2 Flow Rate 98.3 F 101 H 38 H 138/68 94 3 10/14/22 16:01 10/14/22 16:01 10/14/22 16:01 10/14/22 16:01 10/14/22 16:01 10/14/22 15:32 10/14/22 15:32 Period Temp Pulse Resp BP Sys/[place] Pulse Ox O2 Del Method O2 Flow Rate Last 24 Hr 98.3 F-99.3 F 89-102 16-47 125-219/68-190 84-96 Nasal Cannula- Oxymask 2-3 Intake and Output 10/14/22 10/14/22 10/14/22 03:59 11:59 19:59 Intake Total 250 650 Output Total 777 275 Balance 250 -777 375 Weight 75.07 kg Intake & Output: Intake & Output 10/14/22 10/14/22 10/14/22 03:59 11:59 19:59 Intake Total 250 650 Output Total 777 275 Balance 250 -777 375 Weight 75.07 kg Intake: IV 250 250 Zithromax 500 mg In Dextrose 5% 250 250 in Water 250 ml @ 250 mls/hr IV Q24H [facility] Rx#:[id number] Oral 400 Output: Urine Catheter Amount 650 275 Uretheral (Fischer) 650 Void Amount 125 # of times incontinent of urine 2 Other: Meal Breakfast Lunch Percent of Meal Consumed 50% 50% Feeding Ability Independent Independent Urine Appearance Clear Uretheral (Fischer) Clear Urine Color Dark [place] Dark Yellow Uretheral (Fischer) Dark Yellow Urine Odor Normal Stool Size Small Stool Color Brown Stool Consistency Soft # Voids 2 # Bowel Movements 2 # of times incontinent of 0 Bowels OBJ DATA Labs CBC & Chem 7: 10/14/22 05:58 10/14/22 05:58 Labs: Abnormal Lab Results 10/14/22 10/14/22 10/13/22 05:58 05:58 20:30 Lymph % (Auto) [place] % (Auto) Lymph # (Auto) [place] # (Auto) Band Neutrophils % 16 H Lymphocytes % 5 L D-Dimer POC VBG pO2 POC Venous O2 Sat POC VBG Base Excess POC Sodium Sodium 132 L POC Creatinine Glucose 241 H POC Glucose Phosphorus 2.3 L Direct Bilirubin 0.3 H AST 75 H ALT 107 H Procalcitonin Urine Protein 30 A Urine Ketones 15 A Urine Occult Blood Moderate A Urine Urobilinogen 4.0 A Urine RBC 13 H Urine Mucus Few A 10/13/22 10/13/22 10/13/22 17:08 17:04 17:00 Lymph % (Auto) [place] % (Auto) Lymph # (Auto) [place] # (Auto) Band Neutrophils % Lymphocytes % D-Dimer POC VBG pO2 43 H POC Venous O2 Sat 78.0 H POC VBG Base Excess 3.0 H POC Sodium 132 L Sodium POC Creatinine 0.4 L Glucose POC Glucose 204 H Phosphorus Direct Bilirubin AST ALT Procalcitonin 0.25 H Urine Protein Urine Ketones Urine Occult Blood Urine Urobilinogen Urine RBC Urine Mucus 10/13/22 10/13/22 17:00 17:00 Lymph % (Auto) 9.5 L [place] % (Auto) 16.6 H Lymph # (Auto) 0.61 L [place] # (Auto) 1.06 H Band Neutrophils % Lymphocytes % D-Dimer 2.02 H POC VBG pO2 POC Venous O2 Sat POC VBG Base Excess POC Sodium Sodium POC Creatinine Glucose POC Glucose Phosphorus Direct Bilirubin AST ALT Procalcitonin Urine Protein Urine Ketones Urine Occult Blood Urine Urobilinogen Urine RBC Urine Mucus Meds: Medications Acetaminophen (Acetaminophen 325 Mg Tablet) 650 mg PO Q6HP PRN; Protocol PRN Reason: Per Pain Protocol/Fever > 101 Albuterol Sulfate (Albuterol Sulfate 2.5 Mg/3 Ml Nebulizer) 2.5 mg NEB Q2HP PRN PRN Reason: Shortness Of Breath Albuterol/Ipratropium (Ipratropium/Albuterol 3 Ml Ampul.Neb) 3 ml NEB Q4HRT [facility] Last Admin: 10/14/22 15:30 Dose: 3 ml Ceftriaxone Sodium (Ceftriaxone 1 Gm Vial) 1 gm IV Q24H [facility]; Protocol Stop: 10/17/22 09:01 Last Admin: 10/14/22 11:50 Dose: 1 gm Dextrose (Dextrose 50% 50 Ml Vial) 0 ml IV UD PRN PRN Reason: Per Sliding Scale Diagnostic Test (Pha) (Accu-Chek 1 Each Strip) 1 each FS [facility] Last Admin: 10/14/22 16:59 Dose: 1 each Docusate Sodium (Docusate Sodium 100 Mg Capsule) 100 mg PO BID [facility] Last Admin: 10/14/22 11:03 Dose: Not Given Enoxaparin Sodium (Enoxaparin 40 Mg/0.4 Ml Syringe) 40 mg SQ DAILY [facility] Last Admin: 10/14/22 08:53 Dose: 40 mg Glucose (Dextrose 31 Gm Oral.Susp) 15 gm PO PRN PRN PRN Reason: Hypoglycemia Azithromycin 500 mg/ Dextrose 250 mls @ 250 mls/hr IV Q24H [facility]; Protocol Stop: 10/16/22 10:59 Last Infusion: 10/14/22 13:50 Dose: Infused Insulin Human Lispro (Insulin Lispro 1 Unit/0.01 Ml Unit) 0 unit SQ [facility]; Protocol Last Admin: 10/14/22 16:59 Dose: 6 units Lactulose (Lactulose 20 Gm/30 Ml Oral.Meggan) 10 gm PO DAILYP PRN PRN Reason: Constipation Methylprednisolone Sodium Succinate (Methylprednisolone Sod Succ 125 Mg/2 Ml Vial) 62.5 mg IV Q12 [facility] Last Admin: 10/14/22 08:53 Dose: 62.5 mg Ondansetron HCl (Ondansetron 4 Mg/2 Ml Vial) 4 mg IV Q4HP PRN; Protocol PRN Reason: Nausea And Vomiting Senna (Sennosides 1 Tablet) 2 tab PO HSP PRN PRN Reason: Constipation Sodium Chloride (0.9 % Sodium Chloride 10 Ml Syringe) 10 ml IV Q8 [facility] Last Admin: 10/14/22 13:40 Dose: 10 ml A/P Narrative A/P Narrative: Assessment: 82-year-old female with a history of hypertension, hyperlipidemia, COPD, diabetes mellitus, osteoporosis admitted for acute hypoxic respiratory failure and a COPD exacerbation secondary to pneumonia. #Acute hypoxic respiratory failure #Community acquired pneumonia #Severe COPD exacerbation #Encephalopathy #Mildly elevated LFTs #Steroid-induced hyperglycemia #Possible diabetes mellitus type 2 #Generalized weakness #Essential hypertension #Hyperlipidemia #Osteoporosis #Probable cognitive impairment Plan -Ceftriaxone and azithromycin IV. -Oxygen supplementation as needed. -Solu-Medrol IV twice daily. -Scheduled DuoNebs and as needed albuterol nebs. -Follow blood cultures. -Monitor chemistry panel and LFTs. -Check hemoglobin A1c. -Humalog SSImedium dose. -Continue home metoprolol, lisinopril, rosuvastatin. -Holding home long-acting inhalers until transitioned from scheduled to as needed DuoNebs. -Consistent carbohydrate diet. -PT and OT consult. -Delirium bundle. -DVT prophylaxis: Lovenox -CODE STATUS: Full -Physician: TBD Time Spent With Patient Time: Total time spent is greater than 50% in coordination of care (as documented) at patient's floor/unit and/or counseling patient:
[2022-10-14] MEDS: METOPROLOL TARTRATE 50 MG TABLET PO SCH (20:43)
[2022-10-15] MEDS: IPRATROPIUM/ALBUTEROL 3 ML AMPUL.NEB NEB SCH ×6 (02:10→23:01)
[2022-10-15] MEDS: 0.9 % SODIUM CHLORIDE 10 ML SYRINGE IV SCH ×3 (06:01→20:17)
[2022-10-15 06:50] LABS: Hematocrit 42.3 % (34.1-44.9); Hemoglobin 13.5 g/dL (11.2-15.7); Mean Cell Volume 91.6 fL (80.0-100.0); Mean Corpuscular HGB Conc 31.9 g/dL (31.0-36.0); Mean Platelet Volume 10.4 fL (8.8-12.5); Platelet Count 177 K/mcL (140-440); RBC 4.62 M/mcL (3.59-5.38); Red Cell Distribution Width 12.3 % (11.5-14.5)
[2022-10-15 06:50] LABS: ALT/SGPT 148 U/L (<40); AST/SGOT 100 U/L (<32); Albumin 2.8 gm/dL (3.2-5.2); Albumin/Globulin Ratio 0.9 (1.0-2.3); Alkaline Phosphatase 87 U/L (39-117); Bilirubin,Direct 0.2 mg/dL (<0.3); Bilirubin,Total 0.5 mg/dL (0.1-1.0); Blood Urea Nitrogen 18 mg/dL (8-23); Calcium 10.4 mg/dL (8.6-10.4); Carbon Dioxide 27 mmol/L (22-30); Chloride 97 mmol/L (96-108); Globulin 3.2 gm/dL (2.2-3.7); Glomerular Filtration Rate 81; Glucose 279 mg/dL (70-105); Lactate Dehydrogenase 227 U/L (135-225); Phosphorous 2.6 mg/dL (2.5-4.5); Triglycerides 91 mg/dL (<150); Uric Acid 4.5 mg/dL (2.5-8.0)
[2022-10-15 07:01] LABS: Hemoglobin A1C 7.4 % Hgb (4.0-6.0)
[2022-10-15 07:56] LABS: Band Neutrophils % 17 % (0-10); Lymphocytes % 11 % (15-49); Metamyelocytes % 1 %; Monocytes % (Manual) 9 % (1-12); Platelet Estimate NORMAL (Normal); RBC Morphology NORMAL (Normal); Reactive Lymphocytes 1 % (0-2); Segmented Neutrophils % 61 % (38-78)
[2022-10-15] MEDS: DOCUSATE SODIUM 100 MG CAPSULE PO SCH ×2 (09:35→20:15)
[2022-10-15] MEDS: methylPREDNISolone SOD SUCC 125 MG/2 ML VIAL IV SCH ×2 (09:35→20:17)
[2022-10-15] MEDS: INSULIN LISPRO 1 UNIT/0.01 ML UNIT SQ SCH ×4 (09:35→20:17)
[2022-10-15] MEDS: LISINOPRIL 20 MG TABLET PO SCH (09:36)
[2022-10-15] MEDS: METOPROLOL TARTRATE 50 MG TABLET PO SCH ×2 (09:36→20:15)
[2022-10-15] MEDS: ATORVASTATIN 40 MG TABLET PO SCH (09:36)
[2022-10-15] MEDS: ENOXAPARIN 40 MG/0.4 ML SYRINGE SQ SCH (09:43)
[2022-10-15] MEDS: LEVOFLOXACIN 750 MG/150 ML BAG IV SCH (10:27)
[2022-10-15 12:13] LABS: Appearance,Urine CLOUDY (Clear); Bilirubin,Urine NEGATIVE (Negative); Color,Urine Red; Culture Indicated,Urine No; Glucose,Urine (UA) NEGATIVE (Negative); Ketones,Urine NEGATIVE (Negative); Leukocyte Esterase,Urine TRACE /uL (Negative); Nitrate,Urine NEGATIVE (Negative); PH,Urine 6.5 (5.0-9.0); Protein,Urine 100 mg/dL (Negative); Urine Blood LARGE ery/mcL (Negative); Urine RBC > 182 /hpf (0-1); Urine Squamous Epithelial Cell 1 /hpf (0-4); Urine WBC 3 /hpf (0-4)
--- NOTE | 2022-10-15 12:28 | Internal Med Progress Note ---
SUBJECTIVE Subjective Patient information: Note initiated : 10/15/22 at 12:28 pm Service Date, if different from initiated Date: [] Patient: Hailey Gavin 82 y/o F admitted on 10/14/22 for Shortness of breath. Chief Complaint: [] Interval history: Ms. Gavin is a 82-year-old female with a history of hypertension, hyperlipidemia, COPD, diabetes mellitus, osteoporosis who presented to the emergency department for shortness of breath that has been progressively worsening for about 4 days. Patient also has had a productive cough initially of yellowish sputum that later became more brownish in color. Patient has had some chills and fatigue but no fevers. In the emergency department, the patient had a new oxygen requirement of 2 L/min, a temperature of 99.0, respiratory rate in the 30s, heart rate in the 90s. The patient's white blood cell count was normal, sodium mildly decreased at 132, glucose level 204 with an otherwise unremarkable chemistry panel. Chest x-ray showed moderate interstitial alveolar and airspace disease diffusely throughout both lungs. The patient had an elevated D-dimer, CTA was performed and results pending when hospital medicine was consulted. The ED provider did say that the CTA preliminary report was n egative for pulmonary embolism. Oanh COVID and influenza combo was negative. 10/14 Patient respiratory rate was in the 30s overnight, heart rate in the 90s to low 100s, blood pressure normal to mildly elevated, continues on nasal oxygen supplementation, 3 L/min. Respiratory virus panel negative, SARS-CoV-2 PCR negative. MRSA nasal PCR negative. Sputum gram stain and culture was contaminated. The patient is moderately confused, redirectable with staff and family at bedside. Fischer catheter placed for urinary retention overnight. The patient is difficult to straight cath. According to family members, the patient has had problems with urinary retention in the past. CTA chest was negative for PE, positive for moderate patchy infiltrate in the posterior segment of the right lower lobe and small patchy tree-in-bud infiltrates scattered throughout the remaining right upper lobe, left upper lobe, both lower lobes and right middle lobe. Radiology felt this was consistent with infection or aspiration. Continuing ceftriaxone and azithromycin. Continuing Solu-Medrol IV, scheduled duo nebs and as needed albuterol nebs. 10/15 Physical exam Head: Atraumatic, normal inspection. Eyes: normal appearance, no scleral icterus. Neck: full ROM Respiratory: 3 L/min oxygen supplementation, prolonged expirations, diffuse of bilateral wheezes Cardiovascular: normal rate and rhythm, S1, S2. GI/Abdominal: soft, nontender, no guarding. Extremities: full range of motion, nontender. Neurological: CN II-XII intact, intact motor, intact sensation. Psychiatric: Impaired cognition Skin: warm, normal color Constitutional Vitals: Vital Signs Temp Pulse Resp BP Pulse Ox O2 Del Method O2 Flow Rate 99.2 F H 85 33 H 137/84 92 2 10/15/22 12:01 10/15/22 12:01 10/15/22 12:01 10/15/22 12:01 10/15/22 12:01 10/15/22 11:08 10/15/22 11:08 Period Temp Pulse Resp BP Sys/Kimball Pulse Ox O2 Del Method O2 Flow Rate Last 24 Hr 97.3 F-99.2 F 78-111 14-42 116-151/67-85 89-99 Nasal Cannula- Oxymask 1-3 Intake and Output 10/15/22 10/15/22 10/15/22 03:59 11:59 19:59 Intake Total 640 Output Total 750 180 Balance -750 460 Weight 74.616 kg Intake & Output: Intake & Output 10/15/22 10/15/22 10/15/22 03:59 11:59 19:59 Intake Total 640 Output Total 750 180 Balance -750 460 Weight 74.616 kg Intake: Oral 640 Output: Urine Catheter Amount 750 180 Other: Urine Appearance Clear Clear Small Blood Clots Small Blood Clots Urine Color Light [place] Medium [place] OBJ DATA Labs CBC & Chem 7: 10/15/22 05:32 10/15/22 05:33 Labs: Abnormal Lab Results 10/15/22 10/15/22 10/15/22 10:30 05:33 05:32 Lymph % (Auto) [place] % (Auto) Lymph # (Auto) [place] # (Auto) Band Neutrophils % 17 H Lymphocytes % 11 L D-Dimer POC VBG pO2 POC Venous O2 Sat POC VBG Base Excess POC Sodium Sodium 131 L Anion Gap 7.0 L POC Creatinine Glucose 279 H POC Glucose Hemoglobin A1c Phosphorus Magnesium 2.6 H Direct Bilirubin AST 100 H ALT 148 H Lactate Dehydrogenase 227 H Albumin 2.8 L Albumin/Globulin Ratio 0.9 L Procalcitonin Urine Appearance Cloudy A Urine Protein 100 A Urine Ketones Urine Occult Blood Large A Urine Urobilinogen 2.0 A Ur Leukocyte Esterase Trace A Urine RBC > 182 H Urine Mucus 10/15/22 10/14/22 10/14/22 05:30 05:58 05:58 Lymph % (Auto) [place] % (Auto) Lymph # (Auto) [place] # (Auto) Band Neutrophils % 16 H Lymphocytes % 5 L D-Dimer POC VBG pO2 POC Venous O2 Sat POC VBG Base Excess POC Sodium Sodium 132 L Anion Gap POC Creatinine Glucose 241 H POC Glucose Hemoglobin A1c 7.4 H Phosphorus 2.3 L Magnesium Direct Bilirubin 0.3 H AST 75 H ALT 107 H Lactate Dehydrogenase Albumin Albumin/Globulin Ratio Procalcitonin Urine Appearance Urine Protein Urine Ketones Urine Occult Blood Urine Urobilinogen Ur Leukocyte Esterase Urine RBC Urine Mucus 10/13/22 10/13/22 10/13/22 20:30 17:08 17:04 Lymph % (Auto) Luna % (Auto) Lymph # (Auto) [place] # (Auto) Band Neutrophils % Lymphocytes % D-Dimer POC VBG pO2 43 H POC Venous O2 Sat 78.0 H POC VBG Base Excess 3.0 H POC Sodium 132 L Sodium Anion Gap POC Creatinine 0.4 L Glucose POC Glucose 204 H Hemoglobin A1c Phosphorus Magnesium Direct Bilirubin AST ALT Lactate Dehydrogenase Albumin Albumin/Globulin Ratio Procalcitonin Urine Appearance Urine Protein 30 A Urine Ketones 15 A Urine Occult Blood Moderate A Urine Urobilinogen 4.0 A Ur Leukocyte Esterase Urine RBC 13 H Urine Mucus Few A 10/13/22 10/13/22 10/13/22 17:00 17:00 17:00 Lymph % (Auto) 9.5 L Luna % (Auto) 16.6 H Lymph # (Auto) 0.61 L Luna # (Auto) 1.06 H Band Neutrophils % Lymphocytes % D-Dimer 2.02 H POC VBG pO2 POC Venous O2 Sat POC VBG Base Excess POC Sodium Sodium Anion Gap POC Creatinine Glucose POC Glucose Hemoglobin A1c Phosphorus Magnesium Direct Bilirubin AST ALT Lactate Dehydrogenase Albumin Albumin/Globulin Ratio Procalcitonin 0.25 H Urine Appearance Urine Protein Urine Ketones Urine Occult Blood Urine Urobilinogen Ur Leukocyte Esterase Urine RBC Urine Mucus Meds: Medications Acetaminophen (Acetaminophen 325 Mg Tablet) 650 mg PO Q6HP PRN; Protocol PRN Reason: Per Pain Protocol/Fever > 101 Albuterol Sulfate (Albuterol Sulfate 2.5 Mg/3 Ml Nebulizer) 2.5 mg NEB Q2HP PRN PRN Reason: Shortness Of Breath Albuterol/Ipratropium (Ipratropium/Albuterol 3 Ml Ampul.Neb) 3 ml NEB Q4HRT [facility] Last Admin: 10/15/22 11:07 Dose: 3 ml Atorvastatin Calcium (Atorvastatin 40 Mg Tablet) 40 mg PO QDAY [facility] Last Admin: 10/15/22 09:36 Dose: 40 mg Dextrose (Dextrose 50% 50 Ml Vial) 0 ml IV UD PRN PRN Reason: Per Sliding Scale Diagnostic Test (Pha) (Accu-Chek 1 Each Strip) 1 each FS ACHS [facility] Last Admin: 10/15/22 12:17 Dose: 1 each Docusate Sodium (Docusate Sodium 100 Mg Capsule) 100 mg PO BID [facility] Last Admin: 10/15/22 09:35 Dose: 100 mg Glucose (Dextrose 31 Gm Oral.Susp) 15 gm PO PRN PRN PRN Reason: Hypoglycemia Levofloxacin (Levaquin) 750 mg in 150 mls @ 100 mls/hr IV Q24H [facility] Stop: 10/20/22 08:59 Last Admin: 10/15/22 10:27 Dose: 100 mls/hr Insulin Human Lispro (Insulin Lispro 1 Unit/0.01 Ml Unit) 0 unit SQ [facility]; Protocol Last Admin: 10/15/22 12:17 Dose: 6 units Lactulose (Lactulose 20 Gm/30 Ml Oral.Meggan) 10 gm PO DAILYP PRN PRN Reason: Constipation Lisinopril (Lisinopril 20 Mg Tablet) 40 mg PO DAILY [facility] Last Admin: 10/15/22 09:36 Dose: 40 mg Methylprednisolone Sodium Succinate (Methylprednisolone Sod Succ 125 Mg/2 Ml Vial) 62.5 mg IV Q12 [facility] Last Admin: 10/15/22 09:35 Dose: 62.5 mg Metoprolol Tartrate (Metoprolol Tartrate 50 Mg Tablet) 50 mg PO BID [facility] Last Admin: 10/15/22 09:36 Dose: 50 mg Ondansetron HCl (Ondansetron 4 Mg/2 Ml Vial) 4 mg IV Q4HP PRN; Protocol PRN Reason: Nausea And Vomiting Senna (Sennosides 1 Tablet) 2 tab PO HSP PRN PRN Reason: Constipation Sodium Chloride (0.9 % Sodium Chloride 10 Ml Syringe) 10 ml IV Q8 [facility] Last Admin: 10/15/22 06:01 Dose: 10 ml A/P Narrative A/P Narrative: Assessment: 82-year-old female with a history of hypertension, hyperlipidemia, COPD, diabetes mellitus, osteoporosis admitted for acute hypoxic respiratory failure and a COPD exacerbation secondary to pneumonia. #Acute hypoxic respiratory failure #Community acquired pneumonia #Severe COPD exacerbation #Encephalopathy #Mildly elevated LFTs #Steroid-induced hyperglycemia #Possible diabetes mellitus type 2 #Generalized weakness #Essential hypertension #Hyperlipidemia #Osteoporosis #Probable cognitive impairment Plan -Ceftriaxone and azithromycin IV. -Oxygen supplementation as needed. -Solu-Medrol IV twice daily. -Scheduled DuoNebs and as needed albuterol nebs. -Follow blood cultures. -Monitor chemistry panel and LFTs. -Check hemoglobin A1c. -Humalog SSImedium dose. -Continue home metoprolol, lisinopril, rosuvastatin. -Holding home long-acting inhalers until transitioned from scheduled to as nee ded DuoNebs. -Consistent carbohydrate diet. -PT and OT consult. -Delirium bundle. -DVT prophylaxis: Lovenox -CODE STATUS: Full -Physician: TBD Time Spent With Patient Time: Total time spent is greater than 50% in coordination of care (as documented) at patient's floor/unit and/or counseling patient:
--- NOTE | 2022-10-15 13:34 | Internal Med Progress Note ---
SUBJECTIVE Subjective Patient information: Note initiated : 10/15/22 at 1:28 pm Service Date, if different from initiated Date: [] Patient: Hailey Gavin 82 y/o F admitted on 10/14/22 for Shortness of breath. Chief Complaint: [] Interval history: Ms. Gavin is a 82-year-old female with a history of hypertension, hyperlipidemia, COPD, diabetes mellitus, osteoporosis who presented to the emergency department for shortness of breath that has been progressively worsening for about 4 days. Patient also has had a productive cough initially of yellowish sputum that later became more brownish in color. Patient has had some chills and fatigue but no fevers. In the emergency department, the patient had a new oxygen requirement of 2 L/min, a temperature of 99.0, respiratory rate in the 30s, heart rate in the 90s. The patient's white blood cell count was normal, sodium mildly decreased at 132, glucose level 204 with an otherwise unremarkable chemistry panel. Chest x-ray showed moderate interstitial alveolar and airspace disease diffusely throughout both lungs. The patient had an elevated D-dimer, CTA was performed and results pending when hospital medicine was consulted. The ED provider did say that the CTA preliminary report was ne gative for pulmonary embolism. Oanh COVID and influenza combo was negative. 10/14 Patient respiratory rate was in the 30s overnight, heart rate in the 90s to low 100s, blood pressure normal to mildly elevated, continues on nasal oxygen supplementation, 3 L/min. Respiratory virus panel negative, SARS-CoV-2 PCR negative. MRSA nasal PCR negative. Sputum gram stain and culture was contaminated. The patient is moderately confused, redirectable with staff and family at bedside. Fischer catheter placed for urinary retention overnight. The patient is difficult to straight cath. According to family members, the patient has had problems with urinary retention in the past. CTA chest was negative for PE, positive for moderate patchy infiltrate in the posterior segment of the right lower lobe and small patchy tree-in-bud infiltrates scattered throughout the remaining right upper lobe, left upper lobe, both lower lobes and right middle lobe. Radiology felt this was consistent with infection or aspiration. Continuing ceftriaxone and azithromycin. Continuing Solu-Medrol IV, scheduled duo nebs and as needed albuterol nebs. 10/15 The patient appears to be breathing more comfortably today, 2 L/min nasal oxygen supplementation. High-grade temperatures but no fevers. LFTs trending up, discontinued ceftriaxone and azithromycin and started levofloxacin. Patient's main complaint today is abdominal discomfort. The patient has gross hematuria in the Fischer catheter. Pain abdominal x-ray. Discontinued Lovenox which was for DVT prophylaxis. Urinalysis ordered. Will monitor hematuria, if this does not resolve consult urology. If hematuria does resolve we will place urology referral at discharge. Physical exam Head: Atraumatic, normal inspection. Eyes: normal appearance, no scleral icterus. Neck: full ROM Respiratory: 3 L/min oxygen supplementation, improved bilateral wheezes Cardiovascular: normal rate and rhythm, S1, S2. GI/Abdominal: soft, nontender, no guarding. Extremities: full range of motion, nontender. Neurological: CN II-XII intact, intact motor, intact sensation. Psychiatric: Impaired cognition Skin: warm, normal color Constitutional Vitals: Vital Signs Temp Pulse Resp BP Pulse Ox O2 Del Method O2 Flow Rate 99.2 F H 85 33 H 137/84 92 2 10/15/22 12:01 10/15/22 12:01 10/15/22 12:01 10/15/22 12:01 10/15/22 12:01 10/15/22 11:08 10/15/22 11:08 Period Temp Pulse Resp BP Sys/Kimball Pulse Ox O2 Del Method O2 Flow Rate Last 24 Hr 97.3 F-99.2 F 78-111 14-42 116-151/67-85 89-99 Nasal Cannula- Oxymask 1-3 Intake and Output 10/15/22 10/15/22 10/15/22 03:59 11:59 19:59 Intake Total 640 Output Total 750 180 Balance -750 460 Weight 74.616 kg 74.616 kg Patient Weight 10/16/22 03:59 Weight 74.616 kg Intake & Output: Intake & Output 10/15/22 10/15/22 10/15/22 03:59 11:59 19:59 Intake Total 640 Output Total 750 180 Balance -750 460 Weight 74.616 kg 74.616 kg Intake: Oral 640 Output: Urine Catheter Amount 750 180 Other: Urine Appearance Clear Clear Small Blood Clots Small Blood Clots Urine Color Light [place] Medium [place] OBJ DATA Labs CBC & Chem 7: 10/15/22 05:32 10/15/22 05:33 Labs: Abnormal Lab Results 10/15/22 10/15/22 10/15/22 10:30 05:33 05:32 Lymph % (Auto) [place] % (Auto) Lymph # (Auto) [place] # (Auto) Band Neutrophils % 17 H Lymphocytes % 11 L D-Dimer POC VBG pO2 POC Venous O2 Sat POC VBG Base Excess POC Sodium Sodium 131 L Anion Gap 7.0 L POC Creatinine Glucose 279 H POC Glucose Hemoglobin A1c Phosphorus Magnesium 2.6 H Direct Bilirubin AST 100 H ALT 148 H Lactate Dehydrogenase 227 H Albumin 2.8 L Albumin/Globulin Ratio 0.9 L Procalcitonin Urine Appearance Cloudy A Urine Protein 100 A Urine Ketones Urine Occult Blood Large A Urine Urobilinogen 2.0 A Ur Leukocyte Esterase Trace A Urine RBC > 182 H Urine Mucus 10/15/22 10/14/22 10/14/22 05:30 05:58 05:58 Lymph % (Auto) [place] % (Auto) Lymph # (Auto) [place] # (Auto) Band Neutrophils % 16 H Lymphocytes % 5 L D-Dimer POC VBG pO2 POC Venous O2 Sat POC VBG Base Excess POC Sodium Sodium 132 L Anion Gap POC Creatinine Glucose 241 H POC Glucose Hemoglobin A1c 7.4 H Phosphorus 2.3 L Magnesium Direct Bilirubin 0.3 H AST 75 H ALT 107 H Lactate Dehydrogenase Albumin Albumin/Globulin Ratio Procalcitonin Urine Appearance Urine Protein Urine Ketones Urine Occult Blood Urine Urobilinogen Ur Leukocyte Esterase Urine RBC Urine Mucus 10/13/22 10/13/22 10/13/22 20:30 17:08 17:04 Lymph % (Auto) [place] % (Auto) Lymph # (Auto) [place] # (Auto) Band Neutrophils % Lymphocytes % D-Dimer POC VBG pO2 43 H POC Venous O2 Sat 78.0 H POC VBG Base Excess 3.0 H POC Sodium 132 L Sodium Anion Gap POC Creatinine 0.4 L Glucose POC Glucose 204 H Hemoglobin A1c Phosphorus Magnesium Direct Bilirubin AST ALT Lactate Dehydrogenase Albumin Albumin/Globulin Ratio Procalcitonin Urine Appearance Urine Protein 30 A Urine Ketones 15 A Urine Occult Blood Moderate A Urine Urobilinogen 4.0 A Ur Leukocyte Esterase Urine RBC 13 H Urine Mucus Few A 10/13/22 10/13/22 10/13/22 17:00 17:00 17:00 Lymph % (Auto) 9.5 L [place] % (Auto) 16.6 H Lymph # (Auto) 0.61 L [place] # (Auto) 1.06 H Band Neutrophils % Lymphocytes % D-Dimer 2.02 H POC VBG pO2 POC Venous O2 Sat POC VBG Base Excess POC Sodium Sodium Anion Gap POC Creatinine Glucose POC Glucose Hemoglobin A1c Phosphorus Magnesium Direct Bilirubin AST ALT Lactate Dehydrogenase Albumin Albumin/Globulin Ratio Procalcitonin 0.25 H Urine Appearance Urine Protein Urine Ketones Urine Occult Blood Urine Urobilinogen Ur Leukocyte Esterase Urine RBC Urine Mucus Meds: Medications Acetaminophen (Acetaminophen 325 Mg Tablet) 650 mg PO Q6HP PRN; Protocol PRN Reason: Per Pain Protocol/Fever > 101 Albuterol Sulfate (Albuterol Sulfate 2.5 Mg/3 Ml Nebulizer) 2.5 mg NEB Q2HP PRN PRN Reason: Shortness Of Breath Albuterol/Ipratropium (Ipratropium/Albuterol 3 Ml Ampul.Neb) 3 ml NEB Q4HRT [facility] Last Admin: 10/15/22 11:07 Dose: 3 ml Atorvastatin Calcium (Atorvastatin 40 Mg Tablet) 40 mg PO QDAY [facility] Last Admin: 10/15/22 09:36 Dose: 40 mg Dextrose (Dextrose 50% 50 Ml Vial) 0 ml IV UD PRN PRN Reason: Per Sliding Scale Diagnostic Test (Pha) (Accu-Chek 1 Each Strip) 1 each FS ACHS [facility] Last Admin: 10/15/22 12:17 Dose: 1 each Docusate Sodium (Docusate Sodium 100 Mg Capsule) 100 mg PO BID [facility] Last Admin: 10/15/22 09:35 Dose: 100 mg Glucose (Dextrose 31 Gm Oral.Susp) 15 gm PO PRN PRN PRN Reason: Hypoglycemia Levofloxacin (Levaquin) 750 mg in 150 mls @ 100 mls/hr IV Q24H [facility] Stop: 10/20/22 08:59 Last Admin: 10/15/22 10:27 Dose: 100 mls/hr Insulin Human Lispro (Insulin Lispro 1 Unit/0.01 Ml Unit) 0 unit SQ ACHS [facility]; Protocol Last Admin: 10/15/22 12:17 Dose: 6 units Lactulose (Lactulose 20 Gm/30 Ml Oral.Meggan) 10 gm PO DAILYP PRN PRN Reason: Constipation Lisinopril (Lisinopril 20 Mg Tablet) 40 mg PO DAILY [facility] Last Admin: 10/15/22 09:36 Dose: 40 mg Methylprednisolone Sodium Succinate (Methylprednisolone Sod Succ 125 Mg/2 Ml Vial) 62.5 mg IV Q12 [facility] Last Admin: 10/15/22 09:35 Dose: 62.5 mg Metoprolol Tartrate (Metoprolol Tartrate 50 Mg Tablet) 50 mg PO BID [facility] Last Admin: 10/15/22 09:36 Dose: 50 mg Ondansetron HCl (Ondansetron 4 Mg/2 Ml Vial) 4 mg IV Q4HP PRN; Protocol PRN Reason: Nausea And Vomiting Senna (Sennosides 1 Tablet) 2 tab PO HSP PRN PRN Reason: Constipation Sodium Chloride (0.9 % Sodium Chloride 10 Ml Syringe) 10 ml IV Q8 [facility] Last Admin: 10/15/22 06:01 Dose: 10 ml A/P Narrative A/P Narrative: Assessment: 82-year-old female with a history of hypertension, hyperlipidemia, COPD, diabetes mellitus, osteoporosis admitted for acute hypoxic respiratory frankie lure and a COPD exacerbation secondary to pneumonia. #Acute hypoxic respiratory failure #Community acquired pneumonia #Severe COPD exacerbation #Encephalopathy, improving #Mildly elevated LFTs #Steroid-induced hyperglycemia #Possible diabetes mellitus type 2 #Generalized weakness #Essential hypertension #Hyperlipidemia #Osteoporosis #Probable cognitive impairment Plan -Levofloxacin IV, discontinued ceftriaxone and azithromycin due to trending LFTs. -Oxygen supplementation as needed. -Solu-Medrol IV twice daily. -Scheduled DuoNebs and as needed albuterol nebs. -Follow blood cultures. -Monitor chemistry panel and LFTs. -Humalog SSImedium dose. -Continue home metoprolol, lisinopril, rosuvastatin. -Holding home long-acting inhalers until transitioned from scheduled to as needed DuoNebs. -Consistent carbohydrate diet. -PT and OT consult. -Delirium bundle. -DVT prophylaxis: Lovenox -CODE STATUS: Full -Physician: TBD Time Spent With Patient Time: Total time spent is greater than 50% in coordination of care (as documented) at patient's floor/unit and/or counseling patient:
--- NOTE | 2022-10-15 14:27 | XRay Report ---
CLINICAL INFORMATION: Abdominal discomfort, suspect consiptation. COMPARISON: None. FINDINGS: Stomach, small and large bowel are symmetrically dilated compatible with moderate ileus. There is no free air, soft tissue mass, organomegaly or pathologic calcification. IMPRESSION: Moderate ileus. Interpreted and Authenticated by: Robert Kendrick 10/15/22
[2022-10-15] MEDS ORDERED: CALCIUM CARBONATE 500 MG TAB.CHEW CHEWED ONE (15:27)
[2022-10-15] MEDS ORDERED: IOPAMIDOL 100 ML BOTTLE IV ONE (16:14)
[2022-10-16] MEDS: IPRATROPIUM/ALBUTEROL 3 ML AMPUL.NEB NEB SCH ×4 (03:06→20:03)
[2022-10-16] MEDS: 0.9 % SODIUM CHLORIDE 10 ML SYRINGE IV SCH ×3 (05:57→20:45)
--- NOTE | 2022-10-16 05:57 | Cat Scan Report ---
CLINICAL INFORMATION: Abdominal pain and distention COMPARISON: Chest CT 10/13/2022. TECHNIQUE: Following enteric contrast, 80 cc of Isovue-[id number] were injected intravenously, and 60 seconds later, 0.625 mm helical slices were obtained from the mid heart through the subtrochanteric regions. Following reconstruction, 2.5 mm sagittal, coronal and axial reformatted images were processed and reviewed at bone, lung and soft tissue windows. Five minutes later, 0.625 mm helical slices were obtained from the mid heart through the kidneys and viewed at soft tissue windows.The exam was performed using radiation dose optimization techniques including, but not limited to, automated exposure control, adjustment of the mA and/or kV according to patient size and use of iterative reconstruction technique. FINDINGS: The lung bases show moderate centrilobular emphysema as seen on recent chest CT. No infiltrates or effusions. The visualized heart is grossly normal. Abdominal images show the gallbladder is surgically absent. Common bile duct is mildly dilated, 7 mm, compatible post cholecystectomy state. The liver shows minimal fatty change, but no focal lesions. Mild dilatation of the [place] pancreatic duct noted-4 mm. This is likely due to mild postcholecystectomy papillary stenosis: there is no mass or stone in the ampullary region. Pancreatic parenchyma is normal. Benign adenomas are seen in each adrenal gland: 4.6 cm on the right and 3.3 cm on the left. 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 The remainder of both kidneys are normal. The abdominal aorta contains moderate calcific and fibrofatty plaque but is normal caliber-18 mm. Branches contain plaque but no stenoses. Pelvic images show hysterectomy /oophorectomy changes. The urinary bladder is grossly normal. There are multiple sigmoid diverticuli, but no evidence of diverticulitis. The remaining large bowel, inferior pericecal appendix, small bowel and stomach are grossly normal. There is no free air, free fluid or adenopathy. Bone windows show no osseous abnormality. IMPRESSION: 1. No acute disease. 2. Sigmoid diverticulosis, but no evidence of diverticulitis. 3. 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 This is almost certainly clinically insignificant in this patient. 4. Bilateral benign adrenal adenomas: 4.6 cm on the right 3.3 cm on the left. 5. Moderate centrilobular emphysema in the lung bases. 6. Mild dilatation of the common bile and proximal pancreatic duct likely due to mild postcholecystectomy papillary stenosis. This is almost certainly clinically insignificant. Interpreted and Authenticated by: Robert Kendrick 10/16/22
[2022-10-16 06:40] LABS: Hematocrit 43.5 % (34.1-44.9); Mean Cell Volume 92.8 fL (80.0-100.0); Mean Corpuscular HGB Conc 32.2 g/dL (31.0-36.0); Mean Platelet Volume 10.2 fL (8.8-12.5); Platelet Count 196 K/mcL (140-440); RBC 4.69 M/mcL (3.59-5.38); Red Cell Distribution Width 12.2 % (11.5-14.5); WBC 9.3 K/mcL (4.5-11.0)
[2022-10-16 06:55] LABS: ALT/SGPT 137 U/L (<40); AST/SGOT 57 U/L (<32); Albumin/Globulin Ratio 1.1 (1.0-2.3); Alkaline Phosphatase 84 U/L (39-117); Bilirubin,Direct 0.2 mg/dL (<0.3); Bilirubin,Total 0.4 mg/dL (0.1-1.0); Blood Urea Nitrogen 22 mg/dL (8-23); Calcium 10.5 mg/dL (8.6-10.4); Carbon Dioxide 29 mmol/L (22-30); Chloride 98 mmol/L (96-108); Globulin 2.8 gm/dL (2.2-3.7); Glomerular Filtration Rate 81; Glucose 266 mg/dL (70-105); Lactate Dehydrogenase 215 U/L (135-225); Phosphorous 3.7 mg/dL (2.5-4.5); Triglycerides 104 mg/dL (<150); Uric Acid 4.7 mg/dL (2.5-8.0)
[2022-10-16 09:16] LABS: Band Neutrophils % 11 % (0-10); Lymphocytes % 8 % (15-49); Metamyelocytes % 1 %; Monocytes % (Manual) 4 % (1-12); Myelocytes % 1 %; Platelet Estimate NORMAL (Normal); RBC Morphology NORMAL (Normal); Reactive Lymphocytes 1 % (0-2); Segmented Neutrophils % 74 % (38-78)
[2022-10-16] MEDS: INSULIN LISPRO 1 UNIT/0.01 ML UNIT SQ SCH ×4 (09:28→20:46)
[2022-10-16] MEDS: methylPREDNISolone SOD SUCC 125 MG/2 ML VIAL IV SCH (09:29)
[2022-10-16] MEDS: ATORVASTATIN 40 MG TABLET PO SCH (09:29)
[2022-10-16] MEDS: LEVOFLOXACIN 750 MG/150 ML BAG IV SCH (09:29)
[2022-10-16] MEDS: DOCUSATE SODIUM 100 MG CAPSULE PO SCH ×2 (09:29→20:46)
[2022-10-16] MEDS: LISINOPRIL 20 MG TABLET PO SCH (09:29)
[2022-10-16] MEDS: METOPROLOL TARTRATE 50 MG TABLET PO SCH ×2 (09:29→20:46)
--- NOTE | 2022-10-16 11:55 | Internal Med Progress Note ---
SUBJECTIVE Subjective Patient information: Note initiated : 10/16/22 at 11:53 am Service Date, if different from initiated Date: [] Patient: Hailey Gavin 82 y/o F admitted on 10/14/22 for Shortness of breath. Chief Complaint: [] Interval history: Ms. Gavin is a 82-year-old female with a history of hypertension, hyperlipidemia, COPD, diabetes mellitus, osteoporosis who presented to the emergency department for shortness of breath that has been progressively worsening for about 4 days. Patient also has had a productive cough initially of yellowish sputum that later became more brownish in color. Patient has had some chills and fatigue but no fevers. In the emergency department, the patient had a new oxygen requirement of 2 L/min, a temperature of 99.0, respiratory rate in the 30s, heart rate in the 90s. The patient's white blood cell count was normal, sodium mildly decreased at 132, glucose level 204 with an otherwise unremarkable chemistry panel. Chest x-ray showed moderate interstitial alveolar and airspace disease diffusely throughout both lungs. The patient had an elevated D-dimer, CTA was performed and results pending when hospital medicine was consulted. The ED provider did say that the CTA preliminary report was n egative for pulmonary embolism. Oanh COVID and influenza combo was negative. 10/14 Patient respiratory rate was in the 30s overnight, heart rate in the 90s to low 100s, blood pressure normal to mildly elevated, continues on nasal oxygen supplementation, 3 L/min. Respiratory virus panel negative, SARS-CoV-2 PCR negative. MRSA nasal PCR negative. Sputum gram stain and culture was contaminated. The patient is moderately confused, redirectable with staff and family at bedside. Fischer catheter placed for urinary retention overnight. The patient is difficult to straight cath. According to family members, the patient has had problems with urinary retention in the past. CTA chest was negative for PE, positive for moderate patchy infiltrate in the posterior segment of the right lower lobe and small patchy tree-in-bud infiltrates scattered throughout the remaining right upper lobe, left upper lobe, both lower lobes and right middle lobe. Radiology felt this was consistent with infection or aspiration. Continuing ceftriaxone and azithromycin. Continuing Solu-Medrol IV, scheduled duo nebs and as needed albuterol nebs. 10/15 The patient appears to be breathing more comfortably today, 2 L/min nasal oxygen supplementation. High-grade temperatures but no fevers. LFTs trending up, discontinued ceftriaxone and azithromycin and started levofloxacin. Patient's main complaint today is abdominal discomfort. The patient has gross hematuria in the Fischer catheter. Pain abdominal x-ray. Discontinued Lovenox which was for DVT prophylaxis. Urinalysis ordered. Will monitor hematuria, if this does not resolve consult urology. If hematuria does resolve we will place urology referral at discharge. 10/16 Vitals continue to improve, on 2 L/min nasal cannula and breathing comfortably. Hematuria has resolved, remove Fischer catheter. Yesterday the abdominal x-ray appeared consistent with ileus however CT abdomen pelvis did not show any acute process. LFTs improving after change of antibiotics to IV levofloxacin. Appetite seems to be improving, passing gas. Potassium slightly elevated today, will recheck this afternoon. Transfer to [facility]. Physical exam Head: Atraumatic, normal inspection. Eyes: normal appearance, no scleral icterus. Neck: full ROM Respiratory: 2 L/min oxygen supplementation, minimal bilateral wheezes Cardiovascular: normal rate and rhythm, S1, S2. GI/Abdominal: soft, nontender, no guarding. : Indwelling Fischer catheter Extremities: full range of motion, nontender. Neurological: CN II-XII intact, intact motor, intact sensation. Psychiatric: Impaired cognition Skin: warm, normal color Constitutional Vitals: Vital Signs Temp Pulse Resp BP Pulse Ox O2 Del Method O2 Flow Rate 99 F 88 20 148/104 93 2 10/16/22 08:01 10/16/22 10:01 10/16/22 10:01 10/16/22 10:01 10/16/22 10:01 10/16/22 08:01 10/16/22 08:01 Period Temp Pulse Resp BP Sys/Kimball Pulse Ox O2 Del Method O2 Flow Rate Last 24 Hr 98.4 F-99.6 F 67-96 15-39 128-173/66-119 90-97 Nasal Cannula- Nasal Cannula, Heated High Flow Nasal Ca 2-2 Intake and Output 10/15/22 10/16/22 10/16/22 19:59 03:59 11:59 Intake Total 990 200 570 Output Total 1100 600 180 Balance -110 -400 390 Weight 74.616 kg 74.843 kg Intake & Output: Intake & Output 10/15/22 10/16/22 10/16/22 19:59 03:59 11:59 Intake Total 990 200 570 Output Total 1100 600 180 Balance -110 -400 390 Weight 74.616 kg 74.843 kg Intake: IV 150 150 Oral 840 200 420 Output: Urine Catheter Amount 1100 600 180 Other: Meal Lunch Percent of Meal Consumed 75% Feeding Ability Independent Urine Appearance Clear Clear Small Blood Clots Uretheral (Fischer) Clear Clear Urine Color Blood Tinged Yellow Uretheral (Fischer) Yellow Yellow OBJ DATA Labs CBC & Chem 7: 10/16/22 05:43 10/16/22 12:08 Labs: Abnormal Lab Results 10/16/22 10/16/22 10/15/22 05:43 05:43 10:30 Lymph % (Auto) Tyler % (Auto) Lymph # (Auto) Tyler # (Auto) Band Neutrophils % 11 H Lymphocytes % 8 L D-Dimer POC VBG pO2 POC Venous O2 Sat POC VBG Base Excess POC Sodium Sodium Potassium 5.2 H Anion Gap 7.0 L POC Creatinine Glucose 266 H POC Glucose Hemoglobin A1c Calcium 10.5 H Phosphorus Magnesium 2.7 H Direct Bilirubin AST 57 H ALT 137 H Lactate Dehydrogenase Total Protein 5.8 L Albumin 3.0 L Albumin/Globulin Ratio Procalcitonin Urine Appearance Cloudy A Urine Protein 100 A Urine Ketones Urine Occult Blood Large A Urine Urobilinogen 2.0 A Ur Leukocyte Esterase Trace A Urine RBC > 182 H Urine Mucus 10/15/22 10/15/22 10/15/22 05:33 05:32 05:30 Lymph % (Auto) Tyler % (Auto) Lymph # (Auto) Tyler # (Auto) Band Neutrophils % 17 H Lymphocytes % 11 L D-Dimer POC VBG pO2 POC Venous O2 Sat POC VBG Base Excess POC Sodium Sodium 131 L Potassium Anion Gap 7.0 L POC Creatinine Glucose 279 H POC Glucose Hemoglobin A1c 7.4 H Calcium Phosphorus Magnesium 2.6 H Direct Bilirubin AST 100 H ALT 148 H Lactate Dehydrogenase 227 H Total Protein Albumin 2.8 L Albumin/Globulin Ratio 0.9 L Procalcitonin Urine Appearance Urine Protein Urine Ketones Urine Occult Blood Urine Urobilinogen Ur Leukocyte Esterase Urine RBC Urine Mucus 10/14/22 10/14/22 10/13/22 05:58 05:58 20:30 Lymph % (Auto) Tyler % (Auto) Lymph # (Auto) Tyler # (Auto) Band Neutrophils % 16 H Lymphocytes % 5 L D-Dimer POC VBG pO2 POC Venous O2 Sat POC VBG Base Excess POC Sodium Sodium 132 L Potassium Anion Gap POC Creatinine Glucose 241 H POC Glucose Hemoglobin A1c Calcium Phosphorus 2.3 L Magnesium Direct Bilirubin 0.3 H AST 75 H ALT 107 H Lactate Dehydrogenase Total Protein Albumin Albumin/Globulin Ratio Procalcitonin Urine Appearance Urine Protein 30 A Urine Ketones 15 A Urine Occult Blood Moderate A Urine Urobilinogen 4.0 A Ur Leukocyte Esterase Urine RBC 13 H Urine Mucus Few A 10/13/22 10/13/22 10/13/22 17:08 17:04 17:00 Lymph % (Auto) Tyler % (Auto) Lymph # (Auto) Tyler # (Auto) Band Neutrophils % Lymphocytes % D-Dimer POC VBG pO2 43 H POC Venous O2 Sat 78.0 H POC VBG Base Excess 3.0 H POC Sodium 132 L Sodium Potassium Anion Gap POC Creatinine 0.4 L Glucose POC Glucose 204 H Hemoglobin A1c Calcium Phosphorus Magnesium Direct Bilirubin AST ALT Lactate Dehydrogenase Total Protein Albumin Albumin/Globulin Ratio Procalcitonin 0.25 H Urine Appearance Urine Protein Urine Ketones Urine Occult Blood Urine Urobilinogen Ur Leukocyte Esterase Urine RBC Urine Mucus 10/13/22 10/13/22 17:00 17:00 Lymph % (Auto) 9.5 L Tyler % (Auto) 16.6 H Lymph # (Auto) 0.61 L Tyler # (Auto) 1.06 H Band Neutrophils % Lymphocytes % D-Dimer 2.02 H POC VBG pO2 POC Venous O2 Sat POC VBG Base Excess POC Sodium Sodium Potassium Anion Gap POC Creatinine Glucose POC Glucose Hemoglobin A1c Calcium Phosphorus Magnesium Direct Bilirubin AST ALT Lactate Dehydrogenase Total Protein Albumin Albumin/Globulin Ratio Procalcitonin Urine Appearance Urine Protein Urine Ketones Urine Occult Blood Urine Urobilinogen Ur Leukocyte Esterase Urine RBC Urine Mucus Meds: Medications Acetaminophen (Acetaminophen 325 Mg Tablet) 650 mg PO Q6HP PRN; Protocol PRN Reason: Per Pain Protocol/Fever > 101 Albuterol Sulfate (Albuterol Sulfate 2.5 Mg/3 Ml Nebulizer) 2.5 mg NEB Q2HP PRN PRN Reason: Shortness Of Breath Albuterol/Ipratropium (Ipratropium/Albuterol 3 Ml Ampul.Neb) 3 ml NEB Q6HRT [facility] Atorvastatin Calcium (Atorvastatin 40 Mg Tablet) 40 mg PO QDAY [facility] Last Admin: 10/16/22 09:29 Dose: 40 mg Dextrose (Dextrose 50% 50 Ml Vial) 0 ml IV UD PRN PRN Reason: Per Sliding Scale Diagnostic Test (Pha) (Accu-Chek 1 Each Strip) 1 each FS ACHS [facility] Last Admin: 10/16/22 11:22 Dose: 1 each Docusate Sodium (Docusate Sodium 100 Mg Capsule) 100 mg PO BID [facility] Last Admin: 10/16/22 09:29 Dose: 100 mg Glucose (Dextrose 31 Gm Oral.Susp) 15 gm PO PRN PRN PRN Reason: Hypoglycemia Levofloxacin (Levaquin) 750 mg in 150 mls @ 100 mls/hr IV Q24H [facility] Stop: 10/20/22 08:59 Last Infusion: 10/16/22 11:34 Dose: Infused Insulin Human Lispro (Insulin Lispro 1 Unit/0.01 Ml Unit) 0 unit SQ [facility]; Protocol Last Admin: 10/16/22 09:28 Dose: 6 units Lactulose (Lactulose 20 Gm/30 Ml Oral.Meggan) 10 gm PO DAILYP PRN PRN Reason: Constipation Lisinopril (Lisinopril 20 Mg Tablet) 40 mg PO DAILY [facility] Last Admin: 10/16/22 09:29 Dose: 40 mg Methylprednisolone Sodium Succinate (Methylprednisolone Sod Succ 125 Mg/2 Ml Vial) 62.5 mg IV Q12 [facility] Last Admin: 10/16/22 09:29 Dose: 62.5 mg Metoprolol Tartrate (Metoprolol Tartrate 50 Mg Tablet) 50 mg PO BID [facility] Last Admin: 10/16/22 09:29 Dose: 50 mg Ondansetron HCl (Ondansetron 4 Mg/2 Ml Vial) 4 mg IV Q4HP PRN; Protocol PRN Reason: Nausea And Vomiting Last Admin: 10/15/22 21:23 Dose: 4 mg Senna (Sennosides 1 Tablet) 2 tab PO HSP PRN PRN Reason: Constipation Sodium Chloride (0.9 % Sodium Chloride 10 Ml Syringe) 10 ml IV Q8 [facility] Last Admin: 10/16/22 05:57 Dose: 10 ml A/P Narrative A/P Narrative: Assessment: 82-year-old female with a history of hypertension, hyperlipidemia, COPD, diabetes mellitus, osteoporosis admitted for acute hypoxic respiratory failure and a COPD exacerbation secondary to pneumonia. #Acute hypoxic respiratory failure, improving #Community acquired pneumonia #Severe COPD exacerbation, improving #Encephalopathy, improving #Mildly elevated LFTs, improving #Steroid-induced hyperglycemia #Resolved hematuria #Possible diabetes mellitus type 2 #Generalized weakness #Essential hypertension #Hyperlipidemia #Osteoporosis #Probable cognitive impairment Plan -Transition to levofloxacin p.o. daily, treat for 5 to 7 days. -Oxygen supplementation, wean as able. -Transition to prednisone 40 mg daily. -Scheduled DuoNebs and as needed albuterol nebs. -Resume home Stiolto Respimat inhaler Q24hs. -Follow sputum culture. -Monitor chemistry panel and LFTs. -Humalog SSImedium dose. -Continue home metoprolol, lisinopril, rosuvastatin. -Consistent carbohydrate diet. -PT and OT consult. -Delirium bundle. -Remove indwelling Fischer catheter. -DVT prophylaxis: Lovenox -CODE STATUS: Full -Disposition: Low intensity rehab versus home with home health and 24/7 sup ervision. Home oxygen evaluation prior to discharge. Urology referral at discharge for hematuria during hospitalization. Time Spent With Patient Time: Total time spent is greater than 50% in coordination of care (as documented) at patient's floor/unit and/or counseling patient:
[2022-10-16] MEDS: TIOTROPIUM OLODATEROL INH SCH (15:06)
[2022-10-17] MEDS: IPRATROPIUM/ALBUTEROL 3 ML AMPUL.NEB NEB SCH ×2 (00:50→07:47)
[2022-10-17] MEDS: 0.9 % SODIUM CHLORIDE 10 ML SYRINGE IV SCH ×3 (04:43→21:46)
[2022-10-17 07:07] LABS: Hematocrit 42.8 % (34.1-44.9); Hemoglobin 13.9 g/dL (11.2-15.7); Mean Cell Volume 91.5 fL (80.0-100.0); Mean Corpuscular HGB Conc 32.5 g/dL (31.0-36.0); Mean Platelet Volume 10.5 fL (8.8-12.5); Platelet Count 190 K/mcL (140-440); RBC 4.68 M/mcL (3.59-5.38); Red Cell Distribution Width 12.2 % (11.5-14.5); WBC 13.1 K/mcL (4.5-11.0)
[2022-10-17 07:17] LABS: ALT/SGPT 102 U/L (<40); AST/SGOT 36 U/L (<32); Albumin 3.1 gm/dL (3.2-5.2); Albumin/Globulin Ratio 1.2 (1.0-2.3); Alkaline Phosphatase 80 U/L (39-117); Bilirubin,Direct < 0.2 mg/dL (0-0.3); Bilirubin,Total 0.4 mg/dL (0.1-1.0); Blood Urea Nitrogen 18 mg/dL (8-23); Calcium 10.4 mg/dL (8.6-10.4); Carbon Dioxide 32 mmol/L (22-30); Chloride 97 mmol/L (96-108); Globulin 2.6 gm/dL (2.2-3.7); Glomerular Filtration Rate 81; Glucose 154 mg/dL (70-105); Lactate Dehydrogenase 238 U/L (135-225); Phosphorous 2.9 mg/dL (2.5-4.5); Triglycerides 111 mg/dL (<150)
[2022-10-17] MEDS: INSULIN LISPRO 1 UNIT/0.01 ML UNIT SQ SCH ×4 (07:47→21:59)
[2022-10-17] MEDS: ATORVASTATIN 40 MG TABLET PO SCH (08:02)
[2022-10-17] MEDS: DOCUSATE SODIUM 100 MG CAPSULE PO SCH ×2 (08:02→21:46)
[2022-10-17] MEDS: LEVOFLOXACIN 750 MG TABLET PO SCH (08:02)
[2022-10-17] MEDS: METOPROLOL TARTRATE 50 MG TABLET PO SCH ×2 (08:02→21:46)
[2022-10-17] MEDS: predniSONE 20 MG TABLET PO SCH (08:02)
[2022-10-17] MEDS: LISINOPRIL 20 MG TABLET PO SCH (08:02)
[2022-10-17] MEDS: TIOTROPIUM OLODATEROL INH SCH (08:28)
--- NOTE | 2022-10-17 10:18 | Internal Med Progress Note ---
SUBJECTIVE Subjective Patient information: Note initiated : 10/17/22 at 10:15 am Service Date, if different from initiated Date: [] Patient: Hailey Gavin 82 y/o F admitted on 10/14/22 for Shortness of breath. Chief Complaint: [] Interval history: Ms. Gavin is a 82-year-old female with a history of hypertension, hyperlipidemia, COPD, diabetes mellitus, osteoporosis who presented to the emergency department for shortness of breath that has been progressively worsening for about 4 days. Patient also has had a productive cough initially of yellowish sputum that later became more brownish in color. Patient has had some chills and fatigue but no fevers. In the emergency department, the patient had a new oxygen requirement of 2 L/min, a temperature of 99.0, respiratory rate in the 30s, heart rate in the 90s. The patient's white blood cell count was normal, sodium mildly decreased at 132, glucose level 204 with an otherwise unremarkable chemistry panel. Chest x-ray showed moderate interstitial alveolar and airspace disease diffusely throughout both lungs. The patient had an elevated D-dimer, CTA was performed and results pending when hospital medicine was consulted. The ED provider did say that the CTA preliminary report was n egative for pulmonary embolism. Oanh COVID and influenza combo was negative. 10/14 Patient respiratory rate was in the 30s overnight, heart rate in the 90s to low 100s, blood pressure normal to mildly elevated, continues on nasal oxygen supplementation, 3 L/min. Respiratory virus panel negative, SARS-CoV-2 PCR negative. MRSA nasal PCR negative. Sputum gram stain and culture was contaminated. The patient is moderately confused, redirectable with staff and family at bedside. Fischer catheter placed for urinary retention overnight. The patient is difficult to straight cath. According to family members, the patient has had problems with urinary retention in the past. CTA chest was negative for PE, positive for moderate patchy infiltrate in the posterior segment of the right lower lobe and small patchy tree-in-bud infiltrates scattered throughout the remaining right upper lobe, left upper lobe, both lower lobes and right middle lobe. Radiology felt this was consistent with infection or aspiration. Continuing ceftriaxone and azithromycin. Continuing Solu-Medrol IV, scheduled duo nebs and as needed albuterol nebs. 10/15 The patient appears to be breathing more comfortably today, 2 L/min nasal oxygen supplementation. High-grade temperatures but no fevers. LFTs trending up, discontinued ceftriaxone and azithromycin and started levofloxacin. Patient's main complaint today is abdominal discomfort. The patient has gross hematuria in the Fischer catheter. Pain abdominal x-ray. Discontinued Lovenox which was for DVT prophylaxis. Urinalysis ordered. Will monitor hematuria, if this does not resolve consult urology. If hematuria does resolve we will place urology referral at discharge. 10/16 Vitals continue to improve, on 2 L/min nasal cannula and breathing comfortably. Hematuria has resolved, remove Fischer catheter. Yesterday the abdominal x-ray appeared consistent with ileus however CT abdomen pelvis did not show any acute process. LFTs improving after change of antibiotics to IV levofloxacin. Appetite seems to be improving, passing gas. Potassium slightly elevated today, will recheck this afternoon. Transfer to [facility] [place] [place]. 10/17 Blood pressure mildly elevated overnight, otherwise stable. White blood cell count slightly elevated today, probably steroid induced. LFTs downtrending. On oral levofloxacin, prednisone and home COPD inhalers. Awaiting PT recommendations. Physical exam Head: Atraumatic, normal inspection. Eyes: normal appearance, no scleral icterus. Neck: full ROM Respiratory: 2 L/min oxygen supplementation, minimal bilateral wheezes Cardiovascular: normal rate and rhythm, S1, S2. GI/Abdominal: soft, nontender, no guarding. : Indwelling Fischer catheter Extremities: full range of motion, nontender. Neurological: CN II-XII intact, intact motor, intact sensation. Psychiatric: Impaired cognition Skin: warm, normal color Constitutional Vitals: Vital Signs Temp Pulse Resp BP Pulse Ox O2 Del Method O2 Flow Rate 97.9 F 88 16 177/83 92 3 10/17/22 07:41 10/17/22 09:05 10/17/22 09:05 10/17/22 07:41 10/17/22 09:05 10/17/22 09:05 10/17/22 09:05 Period Temp Pulse Resp BP Sys/Kimball Pulse Ox O2 Del Method O2 Flow Rate Last 24 Hr 97.3 F-98.5 F 76-88 12-20 133-178/51-88 90-96 Nasal Cannula- Nasal Cannula 2-3 Intake and Output 10/16/22 10/17/22 10/17/22 19:59 03:59 11:59 Intake Total 480 480 480 Output Total 200 Balance 480 480 280 Weight 74.571 kg Intake & Output: Intake & Output 10/16/22 10/17/22 10/17/22 19:59 03:59 11:59 Intake Total 480 480 480 Output Total 200 Balance 480 480 280 Weight 74.571 kg Intake: Oral 480 480 480 Output: Void Amount 200 Other: Urine Appearance Clear Urine Color Yellow Stool Size Small Stool Color Brown # Voids 1 2 1 # Bowel Movements 1 OBJ DATA Labs CBC & Chem 7: 10/17/22 05:14 10/17/22 05:15 Labs: Abnormal Lab Results 10/17/22 10/17/22 10/16/22 05:15 05:14 05:43 WBC 13.1 H Band Neutrophils % 11 H Lymphocytes % 8 L Sodium Potassium Carbon Dioxide 32 H Anion Gap 6.0 L Glucose 154 H Hemoglobin A1c Calcium Magnesium AST 36 H ALT 102 H Lactate Dehydrogenase 238 H Total Protein 5.7 L Albumin 3.1 L Albumin/Globulin Ratio Urine Appearance Urine Protein Urine Occult Blood Urine Urobilinogen Ur Leukocyte Esterase Urine RBC 10/16/22 10/15/22 10/15/22 05:43 10:30 05:33 WBC Band Neutrophils % Lymphocytes % Sodium 131 L Potassium 5.2 H Carbon Dioxide Anion Gap 7.0 L 7.0 L Glucose 266 H 279 H Hemoglobin A1c Calcium 10.5 H Magnesium 2.7 H 2.6 H AST 57 H 100 H ALT 137 H 148 H Lactate Dehydrogenase 227 H Total Protein 5.8 L Albumin 3.0 L 2.8 L Albumin/Globulin Ratio 0.9 L Urine Appearance Cloudy A Urine Protein 100 A Urine Occult Blood Large A Urine Urobilinogen 2.0 A Ur Leukocyte Esterase Trace A Urine RBC > 182 H 10/15/22 10/15/22 05:32 05:30 WBC Band Neutrophils % 17 H Lymphocytes % 11 L Sodium Potassium Carbon Dioxide Anion Gap Glucose Hemoglobin A1c 7.4 H Calcium Magnesium AST ALT Lactate Dehydrogenase Total Protein Albumin Albumin/Globulin Ratio Urine Appearance Urine Protein Urine Occult Blood Urine Urobilinogen Ur Leukocyte Esterase Urine RBC Meds: Medications Acetaminophen (Acetaminophen 325 Mg Tablet) 650 mg PO Q6HP PRN; Protocol PRN Reason: Per Pain Protocol/Fever > 101 Albuterol Sulfate (Albuterol Sulfate 2.5 Mg/3 Ml Nebulizer) 2.5 mg NEB Q2HP PRN PRN Reason: Shortness Of Breath Albuterol/Ipratropium (Ipratropium/Albuterol 3 Ml Ampul.Neb) 3 ml NEB Q6HRT [facility] Last Admin: 10/17/22 07:47 Dose: 3 ml Atorvastatin Calcium (Atorvastatin 40 Mg Tablet) 40 mg PO QDAY [facility] Last Admin: 10/17/22 08:02 Dose: 40 mg Dextrose (Dextrose 50% 50 Ml Vial) 0 ml IV UD PRN PRN Reason: Per Sliding Scale Diagnostic Test (Pha) (Accu-Chek 1 Each Strip) 1 each FS ACHS [facility] Last Admin: 10/17/22 07:45 Dose: 1 each Docusate Sodium (Docusate Sodium 100 Mg Capsule) 100 mg PO BID [facility] Last Admin: 10/17/22 08:02 Dose: 100 mg Glucose (Dextrose 31 Gm Oral.Susp) 15 gm PO PRN PRN PRN Reason: Hypoglycemia Insulin Human Lispro (Insulin Lispro 1 Unit/0.01 Ml Unit) [address] [facility]; Protocol Last Admin: 10/17/22 07:47 Dose: Not Given Lactulose (Lactulose 20 Gm/30 Ml Oral.Meggan) 10 gm PO DAILYP PRN PRN Reason: Constipation Last Admin: 10/17/22 10:03 Dose: 10 gm Levofloxacin (Levofloxacin 750 Mg Tablet) 750 mg PO DAILY [facility]; Protocol Last Admin: 10/17/22 08:02 Dose: 750 mg Lisinopril (Lisinopril 20 Mg Tablet) 40 mg PO DAILY [facility] Last Admin: 10/17/22 08:02 Dose: 40 mg Metoprolol Tartrate (Metoprolol Tartrate 50 Mg Tablet) 50 mg PO BID [facility] Last Admin: 10/17/22 08:02 Dose: 50 mg Ondansetron HCl (Ondansetron 4 Mg/2 Ml Vial) 4 mg IV Q4HP PRN; Protocol PRN Reason: Nausea And Vomiting Last Admin: 10/15/22 21:23 Dose: 4 mg Tiotropium- Olodaterol [Stiolto Respimat] 2.5-2.5 Mcg-Mcg Inhaler 2 dose INH DAILY [facility] Last Admin: 10/17/22 08:28 Dose: Not Given Prednisone (Prednisone 20 Mg Tablet) 40 mg PO [facility] Last Admin: 10/17/22 08:02 Dose: 40 mg Senna (Sennosides 1 Tablet) 2 tab PO HSP PRN PRN Reason: Constipation Sodium Chloride (0.9 % Sodium Chloride 10 Ml Syringe) 10 ml IV Q8 [facility] Last Admin: 10/17/22 04:43 Dose: 10 ml A/P Narrative A/P Narrative: Assessment: 82-year-old female with a history of hypertension, hyperlipidemia, COPD, diabetes mellitus, osteoporosis admitted for acute hypoxic respiratory failure and a COPD exacerbation secondary to pneumonia. #Acute hypoxic respiratory failure, improved #Community acquired pneumonia #COPD exacerbation, improving #Encephalopathy, improving #Mildly elevated LFTs, improving #Steroid-induced hyperglycemia #Resolved hematuria #Possible diabetes mellitus type 2 #Generalized weakness #Essential hypertension #Hyperlipidemia #Osteoporosis #Probable cognitive impairment Plan -Continue levofloxacin p.o. daily, treat for 5 to 7 days. -Oxygen supplementation, wean as able. -Continue prednisone 40 mg daily. -Continue home Tiotropium Olodaterol. -Albuterol nebs or Duonebs as needed. -Resume home Stiolto Respimat inhaler Q24hs. -Follow sputum culture. -Monitor chemistry panel and LFTs. -Humalog SSImedium dose. -Continue home Aspirin, metoprolol, lisinopril, rosuvastatin. -Consistent carbohydrate diet. -PT and OT consult. -Delirium bundle. -DVT prophylaxis: Lovenox -CODE STATUS: Full -Disposition: Low intensity rehab versus home with home health and / supervision. Home oxygen evaluation prior to discharge. Urology referral at discharge for hematuria that occurred spontaneously during this hospitalization. Time Spent With Patient Time: Total time spent is greater than 50% in coordination of care (as documented) at patient's floor/unit and/or counseling patient:
[2022-10-17] MEDS ORDERED: IPRATROPIUM/ALBUTEROL 3 ML AMPUL.NEB NEB PRN (10:21)
[2022-10-17 11:48] LABS: Band Neutrophils % 2 % (0-10); Lymphocytes % 17 % (15-49); Metamyelocytes % 1 %; Monocytes % (Manual) 13 % (1-12); Myelocytes % 1 %; Platelet Estimate NORMAL (Normal); RBC Morphology NORMAL (Normal); Segmented Neutrophils % 66 % (38-78)
[2022-10-18] MEDS: SENNOSIDES 1 TABLET PO PRN ×2 (03:58→20:17)
[2022-10-18] MEDS: 0.9 % SODIUM CHLORIDE 10 ML SYRINGE IV SCH ×3 (04:00→20:02)
[2022-10-18] MEDS: INSULIN LISPRO 1 UNIT/0.01 ML UNIT SQ SCH ×4 (07:08→20:17)
[2022-10-18 07:27] LABS: Hemoglobin 14.3 g/dL (11.2-15.7); Mean Cell Volume 91.9 fL (80.0-100.0); Mean Corpuscular HGB Conc 32.5 g/dL (31.0-36.0); Mean Platelet Volume 10.2 fL (8.8-12.5); Platelet Count 188 K/mcL (140-440); RBC 4.79 M/mcL (3.59-5.38); Red Cell Distribution Width 12.2 % (11.5-14.5)
[2022-10-18] MEDS: TIOTROPIUM OLODATEROL INH SCH ×2 (08:00→10:48)
[2022-10-18 08:26] LABS: ALT/SGPT 81 U/L (<40); AST/SGOT 28 U/L (<32); Albumin 2.9 gm/dL (3.2-5.2); Albumin/Globulin Ratio 1.1 (1.0-2.3); Alkaline Phosphatase 77 U/L (39-117); Bilirubin,Direct < 0.2 mg/dL (0-0.3); Bilirubin,Total 0.4 mg/dL (0.1-1.0); Blood Urea Nitrogen 17 mg/dL (8-23); Calcium 10.7 mg/dL (8.6-10.4); Carbon Dioxide 34 mmol/L (22-30); Chloride 95 mmol/L (96-108); Globulin 2.7 gm/dL (2.2-3.7); Glomerular Filtration Rate 81; Glucose 135 mg/dL (70-105); Lactate Dehydrogenase 237 U/L (135-225); Phosphorous 3.4 mg/dL (2.5-4.5); Triglycerides 121 mg/dL (<150); Uric Acid 3.7 mg/dL (2.5-8.0)
[2022-10-18 08:32] LABS: Band Neutrophils % 5 % (0-10); Lymphocytes % 21 % (15-49); Monocytes % (Manual) 9 % (1-12); Platelet Estimate NORMAL (Normal); RBC Morphology NORMAL (Normal); Reactive Lymphocytes 1 % (0-2); Segmented Neutrophils % 64 % (38-78)
[2022-10-18] MEDS ORDERED: MAGNESIUM HYDROXIDE 30 ML ORAL.SUSP PO ONE (08:52)
[2022-10-18] MEDS ORDERED: MAGNESIUM CITRATE 300 ML ORAL.SOL PO SCH (09:00)
[2022-10-18] MEDS: METOPROLOL TARTRATE 50 MG TABLET PO SCH ×2 (09:02→20:17)
[2022-10-18] MEDS: ATORVASTATIN 40 MG TABLET PO SCH (09:02)
[2022-10-18] MEDS: ASPIRIN 81 MG TAB.CHEW PO SCH (09:02)
[2022-10-18] MEDS: DOCUSATE SODIUM 100 MG CAPSULE PO SCH ×2 (09:02→20:17)
[2022-10-18] MEDS: LISINOPRIL 20 MG TABLET PO SCH (09:02)
[2022-10-18] MEDS: LEVOFLOXACIN 750 MG TABLET PO SCH (09:02)
[2022-10-18] MEDS: ENOXAPARIN 40 MG/0.4 ML SYRINGE SQ SCH (09:02)
[2022-10-18] MEDS: predniSONE 20 MG TABLET PO SCH (09:02)
--- NOTE | 2022-10-18 11:05 | Internal Med Progress Note ---
SUBJECTIVE Subjective Patient information: Note initiated : 10/18/22 at 11:00 am Service Date, if different from initiated Date: [] Patient: Hailey Gavin 82 y/o F admitted on 10/14/22 for Shortness of breath. Chief Complaint: [] Interval history: Ms. Gavin is a 82-year-old female with a history of hypertension, hyperlipidemia, COPD, diabetes mellitus, osteoporosis who presented to the emergency department for shortness of breath that has been progressively worsening for about 4 days. Patient also has had a productive cough initially of yellowish sputum that later became more brownish in color. Patient has had some chills and fatigue but no fevers. In the emergency department, the patient had a new oxygen requirement of 2 L/min, a temperature of 99.0, respiratory rate in the 30s, heart rate in the 90s. The patient's white blood cell count was normal, sodium mildly decreased at 132, glucose level 204 with an otherwise unremarkable chemistry panel. Chest x-ray showed moderate interstitial alveolar and airspace disease diffusely throughout both lungs. The patient had an elevated D-dimer, CTA was performed and results pending when hospital medicine was consulted. The ED provider did say that the CTA preliminary report was n egative for pulmonary embolism. Oanh COVID and influenza combo was negative. 10/14 Patient respiratory rate was in the 30s overnight, heart rate in the 90s to low 100s, blood pressure normal to mildly elevated, continues on nasal oxygen supplementation, 3 L/min. Respiratory virus panel negative, SARS-CoV-2 PCR negative. MRSA nasal PCR negative. Sputum gram stain and culture was contaminated. The patient is moderately confused, redirectable with staff and family at bedside. Fischer catheter placed for urinary retention overnight. The patient is difficult to straight cath. According to family members, the patient has had problems with urinary retention in the past. CTA chest was negative for PE, positive for moderate patchy infiltrate in the posterior segment of the right lower lobe and small patchy tree-in-bud infiltrates scattered throughout the remaining right upper lobe, left upper lobe, both lower lobes and right middle lobe. Radiology felt this was consistent with infection or aspiration. Continuing ceftriaxone and azithromycin. Continuing Solu-Medrol IV, scheduled duo nebs and as needed albuterol nebs. 10/15 The patient appears to be breathing more comfortably today, 2 L/min nasal oxygen supplementation. High-grade temperatures but no fevers. LFTs trending up, discontinued ceftriaxone and azithromycin and started levofloxacin. Patient's main complaint today is abdominal discomfort. The patient has gross hematuria in the Fischer catheter. Pain abdominal x-ray. Discontinued Lovenox which was for DVT prophylaxis. Urinalysis ordered. Will monitor hematuria, if this does not resolve consult urology. If hematuria does resolve we will place urology referral at discharge. 10/16 Vitals continue to improve, on 2 L/min nasal cannula and breathing comfortably. Hematuria has resolved, remove Fischer catheter. Yesterday the abdominal x-ray appeared consistent with ileus however CT abdomen pelvis did not show any acute process. LFTs improving after change of antibiotics to IV levofloxacin. Appetite seems to be improving, passing gas. Potassium slightly elevated today, will recheck this afternoon. Transfer to [facility]. 10/17 Blood pressure mildly elevated overnight, otherwise stable. White blood cell count slightly elevated today, probably steroid induced. LFTs downtrending. On oral levofloxacin, prednisone and home COPD inhalers. Awaiting PT recommendations. 10/18-patient seen in room along with daughter Jocelyn. Still feels winded and unable to talk in full sentences. Currently on 2 L nasal cannula oxygen, bronchodilators/levofloxacin. No overnight fever chills. Complains of lack of bowel movement since admission. Started on milk of magnesia Constitutional Vitals: Vital Signs Temp Pulse Resp BP Pulse Ox O2 Del Method O2 Flow Rate 97.3 F 76 24 H 163/91 91 2 10/18/22 08:00 10/18/22 08:00 10/18/22 08:00 10/18/22 08:00 10/18/22 08:00 10/18/22 08:00 10/18/22 08:00 Period Temp Pulse Resp BP Sys/Kimball Pulse Ox O2 Del Method O2 Flow Rate Last 24 Hr 97.3 F-98.7 F 70-84 18-28 134-173/76-95 91-94 Nasal Cannula- Nasal Cannula 2-3 Intake and Output 10/17/22 10/18/22 10/18/22 19:59 03:59 11:59 Intake Total 240 500 240 Output Total 1 201 200 Balance 239 299 40 Weight 73.482 kg Alert oriented Anxious Labored breathing unable to talk in full sentences on 2 L oxygen No lymphedema Nondistended nontender abdomen Intake & Output: Intake & Output 10/17/22 10/18/22 10/18/22 19:59 03:59 11:59 Intake Total 240 500 240 Output Total 1 201 200 Balance 239 299 40 Weight 73.482 kg Intake: Oral 240 500 240 Output: Void Amount 200 200 # of times incontinent of urine 1 1 Other: Meal Dinner Breakfast Percent of Meal Consumed 100% 80 Feeding Ability Independent Independent Urine Appearance Clear Clear Urine Color Yellow Yellow # Voids 1 1 OBJ DATA Labs CBC & Chem 7: 10/18/22 05:07 10/18/22 05:07 Labs: Abnormal Lab Results 10/18/22 10/18/22 10/17/22 05:07 05:07 05:15 WBC 12.0 H Band Neutrophils % Lymphocytes % Monocytes % (Manual) Potassium Chloride 95 L Carbon Dioxide 34 H 32 H Anion Gap 6.0 L 6.0 L Glucose 135 H 154 H Calcium 10.7 H Magnesium AST 36 H ALT 81 H 102 H Lactate Dehydrogenase 237 H 238 H Total Protein 5.6 L 5.7 L Albumin 2.9 L 3.1 L Urine Appearance Urine Protein Urine Occult Blood Urine Urobilinogen Ur Leukocyte Esterase Urine RBC 10/17/22 10/16/22 10/16/22 05:14 05:43 05:43 WBC 13.1 H Band Neutrophils % 11 H Lymphocytes % 8 L Monocytes % (Manual) 13 H Potassium 5.2 H Chloride Carbon Dioxide Anion Gap 7.0 L Glucose 266 H Calcium 10.5 H Magnesium 2.7 H AST 57 H ALT 137 H Lactate Dehydrogenase Total Protein 5.8 L Albumin 3.0 L Urine Appearance Urine Protein Urine Occult Blood Urine Urobilinogen Ur Leukocyte Esterase Urine RBC 10/15/22 10:30 WBC Band Neutrophils % Lymphocytes % Monocytes % (Manual) Potassium Chloride Carbon Dioxide Anion Gap Glucose Calcium Magnesium AST ALT Lactate Dehydrogenase Total Protein Albumin Urine Appearance Cloudy A Urine Protein 100 A Urine Occult Blood Large A Urine Urobilinogen 2.0 A Ur Leukocyte Esterase Trace A Urine RBC > 182 H Meds: Medications Acetaminophen (Acetaminophen 325 Mg Tablet) 650 mg PO Q6HP PRN; Protocol PRN Reason: Per Pain Protocol/Fever > 101 Albuterol Sulfate (Albuterol Sulfate 2.5 Mg/3 Ml Nebulizer) 2.5 mg NEB Q2HP PRN PRN Reason: Shortness Of Breath Albuterol/Ipratropium (Ipratropium/Albuterol 3 Ml Ampul.Neb) 3 ml NEB Q6HRT PRN PRN Reason: Dyspnea Aspirin (Aspirin 81 Mg Tab.Chew) 81 mg PO DAILY [facility] Last Admin: 10/18/22 09:02 Dose: 81 mg Atorvastatin Calcium (Atorvastatin 40 Mg Tablet) 40 mg PO QDAY [facility] Last Admin: 10/18/22 09:02 Dose: 40 mg Dextrose (Dextrose 50% 50 Ml Vial) 0 ml IV UD PRN PRN Reason: Per Sliding Scale Diagnostic Test (Pha) (Accu-Chek 1 Each Strip) 1 each FS ACHS [facility] Last Admin: 10/18/22 07:08 Dose: 1 each Docusate Sodium (Docusate Sodium 100 Mg Capsule) 100 mg PO BID [facility] Last Admin: 10/18/22 09:02 Dose: 100 mg Enoxaparin Sodium (Enoxaparin 40 Mg/0.4 Ml Syringe) 40 mg SQ DAILY [facility] Last Admin: 10/18/22 09:02 Dose: 40 mg Glucose (Dextrose 31 Gm Oral.Susp) 15 gm PO PRN PRN PRN Reason: Hypoglycemia Insulin Human Lispro (Insulin Lispro 1 Unit/0.01 Ml Unit) 0 unit SQ [facility]; Protocol Last Admin: 10/18/22 07:08 Dose: Not Given Lactulose (Lactulose 20 Gm/30 Ml Oral.Meggan) 10 gm PO DAILYP PRN PRN Reason: Constipation Last Admin: 10/17/22 10:03 Dose: 10 gm Levofloxacin (Levofloxacin 750 Mg Tablet) 750 mg PO DAILY [facility]; Protocol Last Admin: 10/18/22 09:02 Dose: 750 mg Lisinopril (Lisinopril 20 Mg Tablet) 40 mg PO DAILY [facility] Last Admin: 10/18/22 09:02 Dose: 40 mg Magnesium Citrate (Magnesium Citrate 300 Ml Oral.Meggan) 150 ml PO DAILY [facility] Last Admin: 10/18/22 09:21 Dose: Not Given Metoprolol Tartrate (Metoprolol Tartrate 50 Mg Tablet) 50 mg PO BID [facility] Last Admin: 10/18/22 09:02 Dose: 50 mg Ondansetron HCl (Ondansetron 4 Mg/2 Ml Vial) 4 mg IV Q4HP PRN; Protocol PRN Reason: Nausea And Vomiting Last Admin: 10/15/22 21:23 Dose: 4 mg Tiotropium- Olodaterol [Stiolto Respimat] 2.5-2.5 Mcg-Mcg Inhaler 2 dose INH DAILY [facility] Last Admin: 10/18/22 10:48 Dose: Not Given Prednisone (Prednisone 20 Mg Tablet) 40 mg PO [facility] Last Admin: 10/18/22 09:02 Dose: 40 mg Senna (Sennosides 1 Tablet) 2 tab PO HSP PRN PRN Reason: Constipation Last Admin: 10/18/22 03:58 Dose: 2 tab Sodium Chloride (0.9 % Sodium Chloride 10 Ml Syringe) 10 ml IV Q8 [facility] Last Admin: 10/18/22 04:00 Dose: 10 ml A/P Narrative A/P Narrative: Assessment: 82-year-old female with a history of hypertension, hyperlipidemia, COPD, diabetes mellitus, osteoporosis admitted for acute hypoxic respiratory failure and a COPD exacerbation secondary to pneumonia. * Acute respiratory failure with hypoxia clinically improving, on 2 L supplemental oxygen, secondary to COPD exacerbation. Will need home oxygen on discharge * Acute exacerbation of COPD secondary to pneumonia on steroids/bronchodilators, clinically improving * Community-acquired pneumonia improving on oral Levaquin * Intermittent delirium/confusion with suspected MCI f, much improved today. Frequent reorientation/bright light/avoidance of sedative/hypnotics and narc otics * Urine retention/hematuria-need outpatient urology follow-up * Hypoglycemia secondary to steroid. A1c 7.4 suggestive of early diabetes * Hypertension on metoprolol/DON inhibitor * HLD on statin/aspirin Plan * Continue Levaquin through 10/21 * Steroids/bronchodilators for additional 5 days * PT OT nutrition support * SNF placement likely in 48 hours * Home oxygen on discharge Time Spent With Patient Time: Total time spent is greater than 50% in coordination of care (as documented) at patient's floor/unit and/or counseling patient: Total time spent with greater than 50% in coordination of care (as documented) at patient's floor/unit and/or counseling patient:: 25 - 35 minutes
[2022-10-19] MEDS: 0.9 % SODIUM CHLORIDE 10 ML SYRINGE IV SCH (04:59)
[2022-10-19] MEDS: INSULIN LISPRO 1 UNIT/0.01 ML UNIT SQ SCH ×2 (06:56→11:11)
[2022-10-19] MEDS: predniSONE 20 MG TABLET PO SCH (08:37)
[2022-10-19] MEDS: ATORVASTATIN 40 MG TABLET PO SCH (08:37)
[2022-10-19] MEDS: ENOXAPARIN 40 MG/0.4 ML SYRINGE SQ SCH (08:37)
[2022-10-19] MEDS: ASPIRIN 81 MG TAB.CHEW PO SCH (08:37)
[2022-10-19] MEDS: TIOTROPIUM OLODATEROL INH SCH (08:38)
[2022-10-19] MEDS: DOCUSATE SODIUM 100 MG CAPSULE PO SCH (08:38)
[2022-10-19] MEDS: METOPROLOL TARTRATE 50 MG TABLET PO SCH (08:38)
[2022-10-19] MEDS: LISINOPRIL 20 MG TABLET PO SCH (08:38)
[2022-10-19] MEDS: LEVOFLOXACIN 750 MG TABLET PO SCH (08:38)
--- NOTE | 2022-10-19 10:16 | Discharge Summary ---
Discharge Provider Provider IMPORTANT FOLLOW-UP INFORMATION FOR PCP: Patient information: Note initiated : 10/19/22 at 10:12 am Service Date, if different from initiated Date: [] Patient: Hailey Gavin 82 y/o F admitted on 10/14/22 for Shortness of breath. Chief Complaint: [] Date of admission: 10/14/22 01:34 Discharge date: 10/19/22 Primary care physician: Livan Mendiola MD Consults: 10/13/22 Consult to Physician [CONS] Stat Comment: Consulting Provider: Meng Clemons Reason For Exam: Physician to Consult Consult to Physician [CONS] Stat Comment: Consulting Provider: Meng Clemons Reason For Exam: Physician to Consult 10/18/22 14:29 Consult to Physician [CONS] Routine Comment: snf referral Consulting Provider: Taylor Reason For Exam: Physician to Consult COURSE Hospital Course Hospital course: Discharge diagnosis * Acute respiratory failure with hypoxia clinically improving, on1-2 L sup plemental oxygen, secondary to COPD exacerbation. Discharging to SNF with additional 2 days antibiotics to complete on 10/21 oral Levaquin * Acute exacerbation of COPD secondary to pneumonia on steroids/bronchodilators, clinically improved * Community-acquired pneumonia clinical resolution noted on oral Levaquin * Intermittent delirium/confusion with suspected MCI , much improved today. Mentation at baseline * Urine retention/hematuria-need outpatient urology follow-up * Hypoglycemia secondary to steroid. A1c 7.4 suggestive of early diabetes * Hypertension on metoprolol/DON inhibitor * HLD on statin/aspirin Brief hospital course Ms. Gavin is a 82-year-old female with a history of hypertension, hyperlipidemia, COPD, diabetes mellitus, osteoporosis who presented to the emergency department for shortness of breath that has been progressively worsening for about 4 days. Patient also has had a productive cough initially of yellowish sputum that later became more brownish in color. Patient has had some chills and fatigue but no fevers. In the emergency department, the patient had a new oxygen requirement of 2 L/min, a temperature of 99.0, respiratory rate in the 30s, heart rate in the 90s. The patient's white blood cell count was normal, sodium mildly decreased at 132, glucose level 204 with an otherwise unremarkable chemistry panel. Chest x-ray showed moderate interstitial alveolar and airspace disease diffusely throughout both lungs. The patient had an elevated D-dimer, CTA was performed and results pending when hospital medicine was consulted. The ED provider did say that the CTA preliminary report was negative for pulmonary embolism. Oanh COVID and influenza combo was negative. 10/14 Patient respiratory rate was in the 30s overnight, heart rate in the 90s to low 100s, blood pressure normal to mildly elevated, continues on nasal oxygen supplementation, 3 L/min. Respiratory virus panel negative, SARS-CoV-2 PCR negative. MRSA nasal PCR negative. Sputum gram stain and culture was contaminated. The patient is moderately confused, redirectable with staff and family at bedside. Fischer catheter placed for urinary retention overnight. The patient is difficult to straight cath. According to family members, the patient has had problems with urinary retention in the past. CTA chest was negative for PE, positive for moderate patchy infiltrate in the posterior segment of the right lower lobe and small patchy tree-in-bud infiltrates scattered throughout the remaining right upper lobe, left upper lobe, both lower lobes and right middle lobe. Radiology felt this was consistent with infection or aspiration. Continuing ceftriaxone and azithromycin. Continuing Solu-Medrol IV, scheduled duo nebs and as needed albuterol nebs. 10/15 The patient appears to be breathing more comfortably today, 2 L/min nasal oxygen supplementation. High-grade temperatures but no fevers. LFTs trending up, discontinued ceftriaxone and azithromycin and started levofloxacin. Patient's main complaint today is abdominal discomfort. The patient has gross hematuria in the Fischer catheter. Pain abdominal x-ray. Discontinued Lovenox which was for DVT prophylaxis. Urinalysis ordered. Will monitor hematuria, if this does not resolve consult urology. If hematuria does resolve we will place urology referral at discharge. 10/16 Vitals continue to improve, on 2 L/min nasal cannula and breathing comfortably. Hematuria has resolved, remove Fischer catheter. Yesterday the abdominal x-ray appeared consistent with ileus however CT abdomen pelvis did not show any acute process. LFTs improving after change of antibiotics to IV levofloxacin. Appetite seems to be improving, passing gas. Potassium slightly elevated today, will recheck this afternoon. Transfer to [facility]. 10/17 Blood pressure mildly elevated overnight, otherwise stable. White blood cell count slightly elevated today, probably steroid induced. LFTs downtrending. On oral levofloxacin, prednisone and home COPD inhalers. Awaiting PT recommendations. 10/18-patient seen in room along with daughter Jocelyn. Still feels winded and unable to talk in full sentences. Currently on 2 L nasal cannula oxygen, bronchodilators/levofloxacin. No overnight fever chills. Complains of lack of bowel movement since admission. Started on milk of magnesia 10/19-patient doing a lot better. Now on 1 L oxygen, improved COPD flare. Continue antibiotic Levaquin till 10/21. On steroids/bronchodilators. No overnight fever chills. Transferring to SNF for continued posthospitalization rehab. No active concerns per nursing staff Discharge diagnosis: . Time Spent with Patient Time attestation: Total time spent providing and/or coordinating discharge services: Time spent: Greater than 30 minutes EXAM Constitutional Vitals: Temp Pulse Resp BP Pulse Ox O2 Del Method O2 Flow Rate 97.5 F 77 24 H 138/72 91 2 10/19/22 08:00 10/19/22 08:00 10/19/22 08:00 10/19/22 08:00 10/19/22 08:00 10/19/22 08:00 10/19/22 08:00 Alert oriented Nonlabored with No anxiety On 2 L oxygen No lymphedema Discharge Plan Patient/Caregiver Discharge Instructions Activity: increase activity as tolerated Diet: Regular Diet Activity Restrictions/Additional Instructions: Continue Levaquin/prednisone to 10/21 Wean oxygen as tolerated, get sats 88 to 90% PT OT nutrition support Prescriptions: New prednisone 20 mg Tablet 40 [facility] Qty: 3 0RF levofloxacin 750 mg Tablet 750 mg PO DAILY Qty: 3 0RF Continued cholecalciferol (vitamin D3) 2,000 unit capsule 2,000 unit PO QDAY Qty: 90 3RF lancets [Super Thin Lancets] 28 gauge misc See Rx Instructions .ROUTE .COMPLEX Qty: 100 6RF Dose Instruction: USE TO TEST BLOOD SUGAR EVERY DAY DIRECTED Rx Instructions: USE TO TEST BLOOD SUGAR EVERY DAY DIRECTED (DME) Contour Test Strips Strip See Dose Instructions .ROUTE .MEDSUPPLY Qty: 100 5RF Dose Instruction: As directed Rx Instructions: As directed, test once daily alendronate 70 mg tablet 70 mg PO QWEEK Qty: 12 1RF metoprolol tartrate 50 mg tablet 50 mg PO BID Qty: 180 1RF rosuvastatin 20 mg tablet 20 mg PO QDAY Qty: 90 1RF albuterol sulfate [Ventolin HFA] 90 mcg/actuation HFA aerosol inhaler 2 inh inhalation Q4H PRN (Reason: shortness of breath or wheezing) Qty: 8.5 1RF Stiolto Respimat 2.5-2.5 mcg/actuation mist See Rx Instructions .ROUTE .COMPLEX Qty: 4 3RF Dose Instruction: INHALE 2 PUFFS BY MOUTH EVERY 24 HOURS Rx Instructions: INHALE 2 PUFFS BY MOUTH EVERY 24 HOURS lisinopril 40 mg tablet 40 mg PO QDAY Qty: 90 1RF acetaminophen 500 mg tablet 500 mg PO QDAY PRN (Reason: pain) aspirin 81 mg Tablet,Chewable 81 mg PO DAILY Follow Up Plan Follow up with: Livan Mendiola MD [Primary Care Provider] - Patient Disposition: Xfer SNF Prognosis: Fair Rehab Potential: Fair I certify that the patient requires SNF services: Yes Overall status at discharge: patient is progressing back to baseline Discharge Orders: Discharge Order (Routine); Ordered 10/19/22 Ordered By: Festus Awad
== END 2022-10-19 14:40 | DRG 189 ==
LOC: ED 16:33 → ICU 10-14 01:34 → MEDSUR 10-16 10:35
PROVIDERS: ADMIT Internal Medicine; ATTEND Internal Medicine